=== PATIENT | male | born 1930 | race Caucasian/White ===

== ENCOUNTER 2016-12-28 17:28 | Observation (INO) | payer MEDICARE ==
[~2016-12-28] VITALS: Ht 175.3 cm; Wt 77.0 kg
[2016-12-28 17:32] VITALS: BP 135/87; PULSE 106; RESP 13; TEMP 99.3; O2SAT 95
[2016-12-28] MEDS ORDERED: AMLO5TAB2 PO (18:57)
[2016-12-28] MEDS ORDERED: ATEN25TA PO (18:57)
[2016-12-28] MEDS ORDERED: HYDR25TA5 PO (18:57)
[2016-12-28] MEDS ORDERED: MELO7.5T4 PO (18:57)
[2016-12-28] MEDS ORDERED: SODIUM CHLOR 0.9% 1000 ML INJ 1,000 ML IV SCH (19:37)
[2016-12-28] MEDS ORDERED: ONDANSETRON HCL 4 MG/2 ML VIAL IVP ONE (19:45)
[2016-12-28 19:49] VITALS: BP 154/76; PULSE 83; RESP 17; O2SAT 96
[2016-12-28 20:08] LABS: AUTOMATED NEUTROPHIL # 6.2 TH/MM3 (1.8-7.7); BASOPHIL % 0.3 % (0.0-2.0); EOSINOPHIL % 0.4 % (0.0-4.0); HEMATOCRIT 50.9 % (39.0-51.0); HEMO FLAGS DIFF FINAL; LYMPH % 11.3 % (9.0-44.0); LYMPHOCYTE # 0.9 TH/MM3 (1.0-4.8); MEAN CELL VOLUME 92.6 FL (80.0-100.0); MEAN CORPUSCULAR HEMOGLOBIN 31.2 PG (27.0-34.0); MEAN CORPUSCULAR HGB CONC 33.7 % (32.0-36.0); MONO % 7.1 % (0.0-8.0); NEUT % 80.9 % (16.0-70.0); PLATELET COUNT 126 TH/MM3 (150-450); RED BLOOD COUNT 5.49 MIL/MM3 (4.50-5.90); RED CELL DISTRIBUTION WIDTH 13.6 % (11.6-17.2); WHITE BLOOD COUNT 7.7 TH/MM3 (4.0-11.0)
[2016-12-28 20:20] LABS: INTERNATIONAL NORMALIZED RATIO 1.1 RATIO; PROTHROMBIN TIME - PATIENT 11.7 SEC (9.8-11.6)
--- NOTE | 2016-12-28 20:48 | RADRPT ---
EXAM DATE/TIME: 12/28/2016 20:20 [place] COMPARISON: No previous studies available for comparison. INDICATIONS : Stricture FLUORO TIME: 1.9 minutes IMAGE COUNT: 11 CONTRAST: 1. E-Z HD Barium Sulfate (98% w/w) 2. Liquid E-Z Paque Barium Sulfate (60% w/v, 41% w.w) MEDICAL HISTORY : Esophagial stricture SURGICAL HISTORY : Colostomy. ENCOUNTER: Initial ACUITY: 1 day PAIN SCORE: 0/10 LOCATION: Esophagus FINDINGS: Air-contrast views of the hypopharynx demonstrate a normal mucosal surface without filling defect. R apid sequence images of the hypopharynx and cervical esophagus during the passage of barium demonstra te a normal swallowing function. No evidence of aspiration. Multiphasic examination of the esophagu s demonstrates no esophageal fold thickening, ulceration, or filling defect. The gastroesophageal ju nction is abnormal in configuration with a small sliding-type hiatal hernia with a Schatzki's ring. T he 12.5 mm barium tablet was retained at this level for several minutes. CONCLUSION: Small hiatal hernia with Schatzki's ring at which the barium tablet would not pass for several minute princess Whitley MD on December 28, 2016 at 20:45 Board Certified Radiologist. This report was verified electronically.
[2016-12-28 20:50] LABS: ALT (GPT) 31 U/L (12-78); ANION GAP 8 MEQ/L (5-15); AST (GOT) 34 U/L (15-37); BICARBONATE 27.2 MEQ/L (21.0-32.0); BLOOD UREA NITROGEN 20 MG/DL (7-18); CHLORIDE 105 MEQ/L (98-107); GLOMERULAR FILTRATION RATE 65 ML/MIN (>89); POTASSIUM 4.1 MEQ/L (3.5-5.1); SODIUM (NA) 140 MEQ/L (136-145)
[2016-12-28 20:51] LABS: ALKALINE PHOSPHATASE 84 U/L (45-117); TOTAL BILIRUBIN ADULT 0.8 MG/DL (0.2-1.0)
[2016-12-28] MEDS ORDERED: ONDANSETRON HCL 4 MG/2 ML VIAL IV PUSH PRN (21:15)
--- NOTE | 2016-12-28 21:17 | PD ---
HPI Chief Complaint: Abdominal Pain Time Seen by Provider: 18:52 Travel History International Travel<30 days: No Contact w/Intl Traveler<30days: No Traveled to known affect area: No History of Present Illness HPI 86-year-old male that presents to the ED for evaluation of inability to swallow. Per patient his been ongoing for all day. Per patient she's able to swallow but whenever he swallows a couple minutes later he feels like everything come back up. Per patient he is not minimal treatment swallow his own saliva. Per patient he feels like he just keeps coming back up. He denies able to even swallow solids at all. He is not able to be anything today. He states that he has a history of this similar in the past he was told if he had a hiatal hernia as well has had to have bilateral patient of his esophagus. Per patient is was done years ago at [place] and he no longer follows with the GI doctor at that area. Per patient he actually lives here in [facility]. He has not GI doctor here. Per patient he time he has no pain but whenever he gets the regurgitation episodes he has 3 out of 10 pain. He denies any chest pain. No bowel movement issues. No urinary issues. No recent surgeries to the abdomen. PFSH Past Medical History Diminished Hearing: Yes Hypertension: Yes Past Surgical History Abdominal Surgery: Yes (PERFORATION OF COLON ) Tonsillectomy: Yes Social History Alcohol Use: No Tobacco Use: No Substance Use: No Allergies-Medications (Allergen,Severity, Reaction): Coded Allergies: No Known Allergies (Unverified , 12/28/16) Reported Meds & Prescriptions Reported Meds & Active Scripts Active Reported Hydrochlorothiazide 25 Mg Tab 25 Mg PO DAILY Atenolol 25 Mg Tab 25 Mg PO DAILY Amlodipine (Amlodipine Besylate) 5 Mg Tab 5 Mg PO DAILY Meloxicam 7.5 Mg Tab 7.5 Mg PO DAILY Review of Systems Except as stated in HPI: all other systems reviewed are Neg Physical Exam Narrative GENERAL: SKIN: Warm and dry. HEAD: Atraumatic. Normocephalic. EYES: Pupils equal and round. No scleral icterus. No injection or drainage. ENT: No nasal bleeding or discharge. Mucous membranes pink and moist. Tongue is midline. No uvula deviation. No foreign body or deformity noted to the throat. NECK: Trachea midline. No JVD. CARDIOVASCULAR: Regular rate and rhythm. No murmurs, S3, S4. RESPIRATORY: No accessory muscle use. Clear to auscultation. Breath sounds equal bilaterally. GASTROINTESTINAL: Abdomen soft, non-tender, nondistended. Hepatic and splenic margins not palpable. MUSCULOSKELETAL: Extremities without clubbing, cyanosis, or edema. No obvious deformities. Full range of motion of the upper and lower extremities bilaterally. 2+ pulses bilaterally. NEUROLOGICAL: Awake and alert. No obvious cranial nerve deficits. Motor grossly within normal limits. Five out of 5 muscle strength in the arms and legs. Normal speech. PSYCHIATRIC: Appropriate mood and affect; insight and judgment normal. Data Data Last Documented VS Vital Signs Date Time Temp Pulse Resp B/P (MAP) Pulse Ox O2 Delivery O2 Flow Rate FiO2 12/28/16 19:49 83 17 154/76 (102) 96 Room Air 12/28/16 17:32 99.3 Orders Orders Complete Blood Count With Diff (12/28/16 19:33) Comprehensive Metabolic Panel (12/28/16 19:33) Prothrombin Time / Inr (Pt) (12/28/16 19:33) Act Partial Throm Time (Ptt) (12/28/16 19:33) Lipase (12/28/16 19:33) Barium Swallow (12/28/16 ) Ondansetron Inj (Zofran Inj) (12/28/16 19:45) Sodium Chlor 0.9% 1000 Ml Inj (Ns 1000 M (12/28/16 19:37) Consent (12/28/16 21:10) Diet Npo (12/29/16 Breakfast) ^ Other Nursing Orders (12/28/16 21:11) Pantoprazole Inj (Protonix Inj) (12/28/16 21:15) Ondansetron Inj (Zofran Inj) (12/28/16 21:15) Admit Order (Ed Use Only) (12/28/16 21:57) Consult Gastroenterology (12/28/16 ) Labs Laboratory Tests Test 12/28/16 19:00 White Blood Count 7.7 TH/MM3 Red Blood Count 5.49 MIL/MM3 Hemoglobin 17.1 GM/DL Hematocrit 50.9 % Mean Corpuscular Volume 92.6 FL Mean Corpuscular Hemoglobin 31.2 PG Mean Corpuscular Hemoglobin Concent 33.7 % Red Cell Distribution Width 13.6 % Platelet Count 126 TH/MM3 Mean Platelet Volume 7.6 FL Neutrophils (%) (Auto) 80.9 % Lymphocytes (%) (Auto) 11.3 % Monocytes (%) (Auto) 7.1 % Eosinophils (%) (Auto) 0.4 % Basophils (%) (Auto) 0.3 % Neutrophils # (Auto) 6.2 TH/MM3 Lymphocytes # (Auto) 0.9 TH/MM3 Monocytes # (Auto) 0.5 TH/MM3 Eosinophils # (Auto) 0.0 TH/MM3 Basophils # (Auto) 0.0 TH/MM3 CBC Comment DIFF FINAL Differential Comment Prothrombin Time 11.7 SEC Prothromb Time International Ratio 1.1 RATIO Activated Partial Thromboplast Time 28.0 SEC Blood Urea Nitrogen 20 MG/DL Creatinine 1.08 MG/DL Random Glucose 106 MG/DL Total Protein 7.2 GM/DL Albumin 4.0 GM/DL Calcium Level 9.3 MG/DL Alkaline Phosphatase 84 U/L Aspartate Amino Transf (AST/SGOT) 34 U/L Alanine Aminotransferase (ALT/SGPT) 31 U/L Total Bilirubin 0.8 MG/DL Sodium Level 140 MEQ/L Potassium Level 4.1 MEQ/L Chloride Level 105 MEQ/L Carbon Dioxide Level 27.2 MEQ/L Anion Gap 8 MEQ/L Estimat Glomerular Filtration Rate 65 ML/MIN Lipase 61 U/L MDM Medical Decision Making Medical Screen Exam Complete: Yes Emergency Medical Condition: Yes Medical Record Reviewed: Yes Interpretation(s) CBC & BMP Diagram 12/28/16 19:00 Total Protein 7.2, Albumin 4.0, Calcium Level 9.3, Alkaline Phosphatase 84, Aspartate Amino Transf (AST/SGOT) 34, Alanine Aminotransferase (ALT/SGPT) 31, Total Bilirubin 0.8 Last Impressions Barium Swallow X-Ray 12/28/16 0000 Signed Impressions: Service Date/Time: Wednesday, December 28, 2016 20:20 - CONCLUSION: Small hiatal hernia with Schatzki's ring at which the barium tablet would not pass for several minutes. Jose Roberto Whitley MD Differential Diagnosis Esophageal stricture versus esophagitis versus obstruction versus esophageal spasm versus hiatal hernia Narrative Course 86-year-old male that presents to the ED for evaluation of inability to swallow. Patient was properly examined and was found to have signs and symptoms concerning for esophageal stricture versus spasm. Patient does have a history of having her and has had dilatation in the past. Concern for this again. Recommendation at this time is for barium swallow as well as labs. Patient agrees with this. Labs and imaging did show what appears to be impairment of movement of the barium on the esophageal area around the hiatal hernia. Patient cannot even swallow his own saliva without having it come back up. This was discussed with Dr. Elliott who agrees to consult on the patient and do the EGD tomorrow morning. This was discussed with the patient and family member who agree with plan. Case discussed with Dr. Shah who agrees to admission. Diagnosis Primary Impression: Dysphagia Qualified Codes: R13.10 - Dysphagia, unspecified Additional Impression: Esophageal ring Admitting Information Admitting Physician Requests: Aidan Dhaliwal Dec 28, 2016 21:17
[2016-12-28] MEDS: PANTOPRAZOLE SODIUM 40 MG VIAL IV PUSH SCH (21:56)
[2016-12-28] MEDS ORDERED: MORPHINE SULFATE 4 MG/ML INJ IV PUSH PRN ×2 (22:00)
[2016-12-28] MEDS ORDERED: BISACODYL 10 MG SUPP RECTAL PRN (22:00)
[2016-12-28] MEDS ORDERED: MAGNESIUM HYDROXIDE SUSP 30 ML CUP PO PRN (22:00)
[2016-12-28] MEDS ORDERED: SODIUM CHLORIDE 0.9% FLUSH 10 ML FLUSH IV FLUSH PRN (22:00)
[2016-12-28] MEDS ORDERED: SENNOSIDES 8.6 MG TAB PO PRN (22:00)
[2016-12-28] MEDS ORDERED: ONDANSETRON HCL 4 MG/2 ML VIAL IVP PRN (22:00)
[2016-12-28] MEDS ORDERED: LACTULOSE SYRUP 20 GM/30 ML CUP PO PRN (22:00)
--- NOTE | 2016-12-28 22:01 | HHI.HP ---
HPI Service [facility] Primary Care Physician Isidro Martel MD Admission Diagnosis dysphagia, esophageal stricture, schwalitz ring Diagnoses: (1) Dysphagia Diagnosis: Principal (2) Esophageal stricture Diagnosis: Principal (3) Dehydration Diagnosis: Principal (4) Thrombocytopenia Diagnosis: Principal (5) HTN (hypertension) Diagnosis: Principal Travel History International Travel<30 Days: No Contact w/Intl Traveler <30 Da: No Traveled to Known Affected Are: No History of Present Illness This is an 86-year-old male with PMH of HTN and h/o Esophageal Stricture s/p Dilatation who presented to the ER w/ complaints of dysphagia starting earlier today. States symptoms have been progressive, unable to swallow solids at all, now w/ difficulty swallowing liquids/saliva. Denies chest pain. On arrival, BP 135/87, HR 106, O2 sat 95% on RA, Temp 99.3. CBC unremarkable except for hemoglobin 17.1. Platelets 126. Chemistry unremarkable except for GFR 65. BUN 20. INR 1.1. Barium Swallow a small hiatal hernia and Schatzki's ring at which barium tablet would not pass for several minutes. Dr. Elliott consulted by ER physician, plan is for EGD in am. Review of Systems Except as stated in HPI: all other systems reviewed are Neg ROS: 14 point review of systems otherwise negative. Past Family Social History Past Medical History PMH: HTN and h/o Esophageal Stricture s/p Dilatation Past Surgical History PAST SURGICAL HISTORY: Tonsillectomy, Abdominal Surgery Allergies: Coded Allergies: No Known Allergies (Unverified , 12/28/16) Family History PAST FAMILY HISTORY: Reviewed. No h/o DM or CAD Social History PAST SOCIAL HISTORY: Negative for alcohol, tobacco or drugs. Physical Exam Vital Signs Vital Signs Date Time Temp Pulse Resp B/P (MAP) Pulse Ox O2 Delivery O2 Flow Rate FiO2 12/28/16 19:49 83 17 154/76 (102) 96 Room Air 12/28/16 17:32 99.3 106 13 135/87 (103) 95 Physical Exam PE: GENERAL: Elderly white male in no acute distress. HEENT: PERRLA, EOMI. No scleral icterus or conjunctival pallor. No lid lag or facial droop. CARDIOVASCULAR: Regular rate and rhythm. No obvious murmurs to auscultation. No chest tenderness to palpation. RESPIRATORY: No obvious rhonchi or wheezing. Clear to auscultation. Breath sounds equal bilaterally. GASTROINTESTINAL: Abdomen soft, non-tender, nondistended. BS normal. MUSCULOSKELETAL: Extremities without clubbing, cyanosis, or edema. No obvious deformities. NEUROLOGICAL: Awake, alert and oriented x4. No focal neurologic deficits. Moving both upper and lower extremities spontaneously. Laboratory Laboratory Tests Test 12/28/16 19:00 White Blood Count 7.7 Red Blood Count 5.49 Hemoglobin 17.1 Hematocrit 50.9 Mean Corpuscular Volume 92.6 Mean Corpuscular Hemoglobin 31.2 Mean Corpuscular Hemoglobin Concent 33.7 Red Cell Distribution Width 13.6 Platelet Count 126 Mean Platelet Volume 7.6 Neutrophils (%) (Auto) 80.9 Lymphocytes (%) (Auto) 11.3 Monocytes (%) (Auto) 7.1 Eosinophils (%) (Auto) 0.4 Basophils (%) (Auto) 0.3 Neutrophils # (Auto) 6.2 Lymphocytes # (Auto) 0.9 Monocytes # (Auto) 0.5 Eosinophils # (Auto) 0.0 Basophils # (Auto) 0.0 CBC Comment DIFF FINAL Differential Comment Prothrombin Time 11.7 Prothromb Time International Ratio 1.1 Activated Partial Thromboplast Time 28.0 Blood Urea Nitrogen 20 Creatinine 1.08 Random Glucose 106 Total Protein 7.2 Albumin 4.0 Calcium Level 9.3 Alkaline Phosphatase 84 Aspartate Amino Transf (AST/SGOT) 34 Alanine Aminotransferase (ALT/SGPT) 31 Total Bilirubin 0.8 Sodium Level 140 Potassium Level 4.1 Chloride Level 105 Carbon Dioxide Level 27.2 Anion Gap 8 Estimat Glomerular Filtration Rate 65 Lipase 61 Result Diagram: 12/28/16189912/28/161899 Caprini VTE Risk Assessment Caprini VTE Risk Assessment: No/Low Risk (score <= 1) Caprini Risk Assessment Model Point Value = 1 Point Value = 2 Point Value = 3 Point Value = 5 Age 41-60 Minor surgery BMI > 25 kg/m2 Swollen legs Varicose veins or History of unexplained or recurrent spontaneous Oral contraceptives or hormone replacement Sepsis (< 1 month) Serious lung disease, including pneumonia (< 1 month) Abnormal pulmonary function Acute myocardial infarction Congestive heart failure (< 1 month) History of inflammatory bowel disease Medical patient at bed rest Age 61-74 Arthroscopic surgery Major open surgery (> 45 min) Laparoscopic surgery (> 45 min) Malignancy Confined to bed (> 72 hours) Immobilizing plaster cast Central venous access Age >= 75 History of VTE Family history of VTE Factor V Leiden Prothrombin [id number] Lupus anticoagulant Anticardiolipin antibodies Elevated serum homocysteine Heparin-induced thrombocytopenia Other congenital or acquired thrombophilia Stroke (< 1 month) Elective arthroplasty Hip, pelvis, or leg fracture Acute spinal cord injury (< 1 month) Prophylaxis Regimen Total Risk Factor Score Risk Level Prophylaxis Regimen 0-1 Low Early ambulation 2 Moderate Order ONE of the following: *Sequential Compression Device (SCD) *Heparin 5000 units SQ BID 3-4 Higher Order ONE of the following medications: *Heparin 5000 units SQ TID *Enoxaparin/Lovenox 40 mg SQ daily (WT < 150 kg, CrCl > 30 mL/min) *Enoxaparin/Lovenox 30 mg SQ daily (WT < 150 kg, CrCl > 10-29 mL/min) *Enoxaparin/Lovenox 30 mg SQ BID (WT < 150 kg, CrCl > 30 mL/min) AND/OR *Sequential Compression Device (SCD) 5 or more Highest Order ONE of the following medications: *Heparin 5000 units SQ TID (Preferred with Epidurals) *Enoxaparin/Lovenox 40 mg SQ daily (WT < 150 kg, CrCl > 30 mL/min) *Enoxaparin/Lovenox 30 mg SQ daily (WT < 150 kg, CrCl > 10-29 mL/min) *Enoxaparin/Lovenox 30 mg SQ BID (WT < 150 kg, CrCl > 30 mL/min) AND *Sequential Compression Device (SCD) Assessment and Plan Problem List: (1) Dysphagia ICD Code: R13.10 - Dysphagia, unspecified Status: Acute (2) Esophageal stricture ICD Code: K22.2 - Esophageal obstruction (3) Dehydration ICD Code: E86.0 - Dehydration (4) Thrombocytopenia ICD Code: D69.6 - Thrombocytopenia, unspecified (5) HTN (hypertension) ICD Code: I10 - Essential (primary) hypertension Assessment and Plan A/P: 1. Dysphagia: Progressive. Dysphagia w/ solids, now w/ liquids/saliva. H/o similar symptoms in the past. No c/o chest pain. 2. Esophageal Stricture: h/o Esophageal Dilatation due to stricture. Barium Swallow w/ small hiatal hernia w/ Schatzki's ring, barium tablet would not pass for several minutes, images reviewed by me. Dr. Elliott consulted by ER physician , plan is for EGD in am. NPO, IVF, hold all PO medications at this time. 3. Dehydration: GFR 65, BUN 20. Likely secondary to decreased PO intake from stricture. IVF, repeat labs in am. 4. Thrombocytopenia: Platelets 126, no previous labs for comparison. No active bleeding. Repeat labs in am. 5. HTN: BP 150-160's, hold PO medications at this time in light of esophageal stricture. Monitor BP. IV medications if necessary. 6. DVT Prophylaxis: SCD/Teds. 7. Social work for d/c planning as needed. 8. Case discussed w/ ER physician at length. Problem Qualifiers (1) Dysphagia: Qualified Codes: R13.10 - Dysphagia, unspecified Stephanie Shah MD Dec 28, 2016 22:01
[2016-12-28 23:17] VITALS: BP 163/81; PULSE 81; RESP 18; O2SAT 97
[2016-12-29 00:01] VITALS: BP 166/78; PULSE 63; RESP 19; TEMP 97.8; O2SAT 95
[2016-12-29] MEDS: SODIUM CHLOR 0.9% 1000 ML INJ 1,000 ML IV SCH ×2 (00:29→08:29)
[2016-12-29 03:40] VITALS: BP 133/70; PULSE 65; RESP 18; TEMP 98.4; O2SAT 96
--- NOTE | 2016-12-29 07:25 | PD.CONS ---
HPI History of Present Illness This is a 86 year old male with a long history of solids getting caught intermittently in his esophagus, requiring EGD with dilatations. His last dilatation was about 12-15 years ago. He has continued to have intermittent issues with pills or solids (especially dry solids) becoming lodged, but is usually able to induce vomiting to bring it up. He states that he will then be okay for another 3 months. Yesterday, he took a bite of agarwal for breakfast and it became lodged in his mid esophagus. He was not able to bring this up. He was vomiting clear secretions and having significant discomfort in his esophagus. Eventually, he was able to bring up the agarwal with a large amount of secretions. He occasionally has heartburn, but reports this is very rare. He denies any abdominal pain, weight loss, or GI bleeding. He has occasional constipation, controlled with colace as needed. He is able to swallow his secretions. He came to the ER for further evaluation. Barium Swallow (12/28/16) ----> Small hiatal hernia with Schatzki's ring at which the barium tablet would not pass for several minutes. His last EGD with dilatation was about 12-15 years ago. 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 (Barb Kauffman) [facility] Past Medical History Hypertension Esophageal stricture Hiatal hernia Bowel perforation Peritonitis Diverticulitis Past Surgical History Tonsillectomy EGD dilatation Bowel resection, colostomy with later reversal (bowel perforation secondary to diverticulitis) (Barb Kauffman) Coded Allergies: No Known Allergies (Unverified , 12/28/16) Medications Allergies Coded Allergies Type Severity Reaction Last Updated Verified No Known Allergies 12/28/16 No Active Scripts Medications Dose Route/Sig Max Daily Dose Days Date Category Hydrochlorothiazide 25 Mg Tab 25 Mg PO DAILY 12/28/16 Reported Atenolol 25 Mg Tab 25 Mg PO DAILY 12/28/16 Reported Amlodipine (Amlodipine Besylate) 5 Mg Tab 5 Mg PO DAILY 12/28/16 Reported Meloxicam 7.5 Mg Tab 7.5 Mg PO DAILY 12/28/16 Reported Family History No family hx of esophageal, gastric or colorectal cancer Social History Denies the use of tobacco, etoh, illicit drug use (Barb Kauffman) Review of Systems Constitutional: DENIES: Fatigue, Fever, Chills Respiratory: DENIES: Cough, Shortness of breath Cardiovascular: DENIES: Chest pain Gastrointestinal: COMPLAINS OF: Constipation, Vomiting, Difficulty Swallowing, Odynophagia, Heartburn, DENIES: Abdominal pain, Black stools, Bloody stools, Diarrhea, Nausea, Anorexia, Swelling of Abdomen, Hematemesis Musculoskeletal: COMPLAINS OF: Joint pain Integumentary: DENIES: Abnormal pigmentation, Rash Hematologic/lymphatic: DENIES: Bruising Psychiatric: DENIES: Confusion (Barb Kauffman) GI Exam Vitals I&O Vital Signs Date Time Temp Pulse Resp B/P (MAP) Pulse Ox O2 Delivery O2 Flow Rate FiO2 12/29/16 03:40 98.4 65 18 133/70 (91) 96 12/29/16 00:01 97.8 63 19 166/78 (107) 95 12/28/16 23:18 12/28/16 23:17 81 18 163/81 (108) 97 Room Air 12/28/16 19:49 83 17 154/76 (102) 96 Room Air 12/28/16 17:32 99.3 106 13 135/87 (103) 95 I/O 12/28/16 12/28/16 12/28/16 12/29/16 12/29/16 12/29/16 07:00 15:00 23:00 07:00 15:00 23:00 Intake Total 1000 ml Balance 1000 ml Intake IV Total 1000 ml Imaging Last Impressions Barium Swallow X-Ray 12/28/16 0000 Signed Impressions: Service Date/Time: Wednesday, December 28, 2016 20:20 - CONCLUSION: Small hiatal hernia with Schatzki's ring at which the barium tablet would not pass for several minutes. Jose Roberto Whitley MD Laboratory Test 12/28/16 19:00 White Blood Count 7.7 TH/MM3 Red Blood Count 5.49 MIL/MM3 Hemoglobin 17.1 GM/DL Hematocrit 50.9 % Mean Corpuscular Volume 92.6 FL Mean Corpuscular Hemoglobin 31.2 PG Mean Corpuscular Hemoglobin Concent 33.7 % Red Cell Distribution Width 13.6 % Platelet Count 126 TH/MM3 Mean Platelet Volume 7.6 FL Neutrophils (%) (Auto) 80.9 % Lymphocytes (%) (Auto) 11.3 % Monocytes (%) (Auto) 7.1 % Eosinophils (%) (Auto) 0.4 % Basophils (%) (Auto) 0.3 % Neutrophils # (Auto) 6.2 TH/MM3 Lymphocytes # (Auto) 0.9 TH/MM3 Monocytes # (Auto) 0.5 TH/MM3 Eosinophils # (Auto) 0.0 TH/MM3 Basophils # (Auto) 0.0 TH/MM3 CBC Comment DIFF FINAL Differential Comment Prothrombin Time 11.7 SEC Prothromb Time International Ratio 1.1 RATIO Activated Partial Thromboplast Time 28.0 SEC Blood Urea Nitrogen 20 MG/DL Creatinine 1.08 MG/DL Random Glucose 106 MG/DL Total Protein 7.2 GM/DL Albumin 4.0 GM/DL Calcium Level 9.3 MG/DL Alkaline Phosphatase 84 U/L Aspartate Amino Transf (AST/SGOT) 34 U/L Alanine Aminotransferase (ALT/SGPT) 31 U/L Total Bilirubin 0.8 MG/DL Sodium Level 140 MEQ/L Potassium Level 4.1 MEQ/L Chloride Level 105 MEQ/L Carbon Dioxide Level 27.2 MEQ/L Anion Gap 8 MEQ/L Estimat Glomerular Filtration Rate 65 ML/MIN Lipase 61 U/L Physical Examination HEENT: Normocephalic; atraumatic; no jaundice. CHEST: CTA CARDIAC: RRR ABDOMEN: Soft, nondistended, nontender; no hepatosplenomegaly; bowel sounds are present in all four quadrants. EXTREMITIES: No clubbing, cyanosis, or edema. SKIN: Normal; no rash; no jaundice. AUTOMOTIVE SERVICE PROFESSIONAL: No focal deficits; alert and oriented times three. (Barb Kauffman [facility]) Assessment and Plan Plan ASSESSMENT: - Dysphagia, foreign body in esophagus. Hx of dysphagia requiring dilatations, last 12-15 years ago. He has continued to have issues with dry solids becoming lodged in mid esophagus, but usually can bring it back up on own. Yesterday, a piece of agarwal became lodged and he was unable to bring it back up. Barium Swallow ()----> Small hiatal hernia with Schatzki's ring at which the barium tablet would not pass for several minutes. His last EGD with dilatation was about 12-15 years ago. 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 NPO. Plan for EGD +/- Dilatation, possible food bolus removal. PPI - HTN per attending. PLAN: - Plan for EGD +/- Dilatation, possible food bolus removal - Obtain consents - NPO - Protonix 40mg IV BID - Supportive care - Further recommendations to follow based on results of above - Pt seen and examined by Dr. Keane and myself and this note is written on his behalf (Barb Kauffman) Physician Comments Seen and examined with SUDHA, h/o esophageal stricture with previous madrigal in [facility]. EGD/Dilation planned for today. NPO . Will follow, thank you (Prema Keane MD) Barb Kauffman Dec 29, 2016 07:25 Prema Keane MD Dec 29, 2016 11:10
[2016-12-29 07:32] VITALS: BP 184/86; PULSE 77; RESP 16; TEMP 98; O2SAT 93
[2016-12-29 07:42] LABS: AUTOMATED NEUTROPHIL # 3.5 TH/MM3 (1.8-7.7); BASOPHIL % 0.5 % (0.0-2.0); EOSINOPHIL # 0.2 TH/MM3 (0-0.4); EOSINOPHIL % 3.6 % (0.0-4.0); HEMATOCRIT 46.7 % (39.0-51.0); HEMO FLAGS DIFF FINAL; LYMPH % 27.7 % (9.0-44.0); LYMPHOCYTE # 1.8 TH/MM3 (1.0-4.8); MEAN CELL VOLUME 93.3 FL (80.0-100.0); MEAN CORPUSCULAR HEMOGLOBIN 31.5 PG (27.0-34.0); MEAN CORPUSCULAR HGB CONC 33.7 % (32.0-36.0); MONO % 12.8 % (0.0-8.0); NEUT % 55.4 % (16.0-70.0); PLATELET COUNT 107 TH/MM3 (150-450); RED CELL DISTRIBUTION WIDTH 13.8 % (11.6-17.2); WHITE BLOOD COUNT 6.4 TH/MM3 (4.0-11.0)
[2016-12-29] MEDS ORDERED: ENALAPRILAT 1.25 MG/ML VIAL IV PUSH PRN (07:45)
[2016-12-29 08:25] LABS: ALKALINE PHOSPHATASE 69 U/L (45-117); ALT (GPT) 25 U/L (12-78); ANION GAP 8 MEQ/L (5-15); AST (GOT) 25 U/L (15-37); BICARBONATE 26.3 MEQ/L (21.0-32.0); BLOOD UREA NITROGEN 18 MG/DL (7-18); CHLORIDE 107 MEQ/L (98-107); GLOMERULAR FILTRATION RATE 88 ML/MIN (>89); POTASSIUM 3.5 MEQ/L (3.5-5.1); SODIUM (NA) 141 MEQ/L (136-145); TOTAL BILIRUBIN ADULT 1.1 MG/DL (0.2-1.0)
[2016-12-29] MEDS: PANTOPRAZOLE SODIUM 40 MG VIAL IV PUSH SCH (08:28)
[2016-12-29] MEDS ORDERED: DOCUSATE SODIUM 50 MG/SENNA 8.6 MG TAB PO SCH (09:00)
[2016-12-29] MEDS ORDERED: SODIUM CHLORIDE 0.9% FLUSH 10 ML FLUSH IV FLUSH SCH (09:00)
--- NOTE | 2016-12-29 10:59 | GIPROC ---
[facility] [address] [facility]. [facility], [address] EGD PROCEDURE REPORT EXAM DATE: 12/29/2016 PATIENT NAME: Chance Martinez MR #: [id number] BIRTHDATE: 1930 ATTENDING: Prema Keane MD ORDER #: [id number] RN OR LVN: Malka Denise and Gladis Colon STATUS: inpatient INDICATIONS: The patient is a 86 yr old male here for an EGD due to dysphagia and dyspepsia PROCEDURE PERFORMED: EGD w/ biopsy EGD w/ dilation of esophagus via guidewire MEDICATIONS: None and Per Anesthesia. TOPICAL ANESTHETIC: CONSENT: The patient understands the risks and benefits of the procedure and understands that these risks include, but are not limited to: sedation, allergic reaction, infection, perforation and/or bleeding. Alternative means of evaluation and treatment include, among others: physical exam, x-rays, and/or surgical intervention. The patient elects to proceed with this endoscopic procedure. medical equipment was checked for proper function. Hand hygiene and appropriate measures for infection prevention was taken. After the risks, benefits and alternatives of the procedure were thoroughly explained, Informed consent was verified, confirmed and timeout was successfully executed by the treatment team. The patient was anesthetized with topical anesthesia and the Pentax EG-[id number] endoscope was introduced through the mouth and advanced to the second portion of the duodenum. Retroflexed views revealed a hiatal hernia The gastroscope was then slowly withdrawn and removed. ESOPHAGUS: There was a short peptic stricture in the distal esophagus. The stricture was traversable with resistance. A biopsy was performed using cold forceps. Sample sent for histology. The stricture was dilated using a 17mm (51Fr) savary dilator over guidewire. Following this dilation, there was a small mucosal rent. STOMACH: There was erythematous moderate gastritis in the gastric antrum. A biopsy was performed using cold forceps. Sample sent for histology. DUODENUM: The duodenal mucosa appeared normal. ADVERSE EVENTS: There were no complications. IMPRESSIONS: 1. There was a short stricture in the distal esophagus 2. There was erythematous gastritis in the gastric antrum; biopsy was performed 3. Normal duodenal mucosa 4. Retroflexed views revealed a hiatal hernia RECOMMENDATIONS: 1. Await biopsy results. Biopsy results will not be ready for 7-10 days. If you don't hear from us in two weeks, call our office for biopsy results. 2. Anti-reflux regimen 3. Continue PPI 4. Avoid NSAIDS 5. Follow-up: GI clinic 2 week(s) PATIENT CONDITION: stable DISPOSITION: Inpatient REPEAT EXAM: Return 1 year EGD pending biopsy results Prema Keane MD eSigned: Prema Keane MD 12/29/2016 10:59 AM cc: Isidro walsh M.D. PATIENT NAME: Chance Martinez MR#: [id number]
[2016-12-29] MEDS ORDERED: DO NOT ADM ANY ANTICOAGULANT DRUGS PRN (11:06)
[2016-12-29] MEDS ORDERED: LIDOCAINE HCL 1% PF 5 ML AMPULE OTHER ONE (12:00)
[2016-12-29] MEDS ORDERED: PROPOFOL 200 MG/20 ML AMP IV ONE (12:00)
[2016-12-29 12:16] VITALS: BP 153/71; PULSE 60; RESP 22; TEMP 98.3; O2SAT 95
[2016-12-29] MEDS ORDERED: ATENOLOL 25 MG TAB PO SCH (12:30)
[2016-12-29] MEDS ORDERED: amLODIPine BESYLATE 5 MG TAB PO SCH (12:30)
--- NOTE | 2016-12-29 12:30 | EKG ---
Date Performed: 12/29/2016 Time Performed: 10:06:33 PTAGE: 86 years EKG: Sinus rhythm WITH FIRST DEGREE AV BLOCK POSSIBLE LEFT ATRIAL ENLARGEMENT POSSIBLE LEFT VENTRICULAR HYPERTROPHY AB NORMAL ECG NO PREVIOUS TRACING DOCTOR: Crispin Freeman Interpretating Date/Time 12/29/2016 12:27:35
[2016-12-29] MEDS ORDERED: PANT40TA3 PO (12:31)
--- NOTE | 2016-12-29 12:31 | HHI.PR ---
Subjective Remarks Follow-up for dysphasia. Patient seen with family at bedside. Patient seen after EGD with dilation today. Awaiting lunch, patient wants to eat. He denies any nausea or abdominal pain. He does occasionally take Aleve for pain. Objective Vitals Vital Signs Date Time Temp Pulse Resp B/P (MAP) Pulse Ox O2 Delivery O2 Flow Rate FiO2 12/29/16 12:16 98.3 60 22 153/71 (98) 95 12/29/16 11:30 98.3 75 13 144/74 (97) 98 Room Air 12/29/16 11:15 89 17 157/80 (105) 99 Room Air 12/29/16 11:07 97.9 90 17 142/71 (94) 96 Nasal Cannula 2 12/29/16 07:32 98.0 77 16 184/86 (118) 93 12/29/16 03:40 98.4 65 18 133/70 (91) 96 12/29/16 00:01 97.8 63 19 166/78 (107) 95 12/28/16 23:18 12/28/16 23:17 81 18 163/81 (108) 97 Room Air 12/28/16 19:49 83 17 154/76 (102) 96 Room Air 12/28/16 17:32 99.3 106 13 135/87 (103) 95 I/O 12/28/16 12/28/16 12/28/16 12/29/16 12/29/16 12/29/16 06:59 14:59 22:59 06:59 14:59 22:59 Intake Total 1000 ml 300 ml Balance 1000 ml 300 ml Intake Oral 0 ml IV Total 1000 ml 0 ml Other 300 ml # Voids 0 Result Diagram: 12/29/16 0630 12/29/16 0630 Imaging Last Impressions Barium Swallow X-Ray 12/28/16 0000 Signed Impressions: Service Date/Time: Wednesday, December 28, 2016 20:20 - CONCLUSION: Small hiatal hernia with Schatzki's ring at which the barium tablet would not pass for several minutes. Jose Roberto Whitley MD Objective Remarks GENERAL: Well-developed well-nourished. In no acute distress. SKIN: Warm and dry. No lesions noted. HEENT: Normocephalic. Pupils equal and round. Mucous membranes pink and moist. CARDIOVASCULAR: Regular rate and rhythm. No murmur appreciated. RESPIRATORY: No accessory muscle use. Clear to auscultation. Breath sounds equal bilaterally. GASTROINTESTINAL: Abdomen soft, non-tender, nondistended. Bowel sounds x4. MUSCULOSKELETAL: No obvious deformities. No clubbing or cyanosis. No edema. NEUROLOGICAL: Awake and alert. No focal neurological deficits. Moves upper and lower extremities spontaneously. Normal speech. PSYCHIATRIC: Appropriate mood and affect; insight and judgment normal. A/P Problem List: (1) Dysphagia ICD Code: R13.10 - Dysphagia, unspecified Status: Acute (2) Esophageal stricture ICD Code: K22.2 - Esophageal obstruction Status: Acute (3) Dehydration ICD Code: E86.0 - Dehydration Status: Acute (4) HTN (hypertension) ICD Code: I10 - Essential (primary) hypertension Status: Chronic Assessment and Plan 86-year-old male with PMH of HTN and h/o Esophageal Stricture s/p Dilatation who presented w/ complaints of dysphagia Dysphagia/esophageal stricture: History of esophageal stricture requiring dilation in the past. Barium Swallow performed with hiatal hernia and Schatzki' s ring. GI consulted, performed EGD with dilation, diet advance and recommendation for outpatient follow-up in 2 weeks and avoid NSAIDs. Continue PPI. Patient does admit to NSAID use, counseled against, okay to use Tylenol. ADAT BRODY: Creatinine 1.08, improved to 0.83 with IVF, likely due to dehydration from stricture. Improved. Thrombocytopenia: Platelets 126/107, no previous labs for comparison. No active bleeding. Currently stable. HTN: Wasn't able to swallow BP meds prior to admission and BP is a little bit elevated but reasonably controlled. Resume home BP medications. IV Vasotec as needed. DVT Prophylaxis: SCD/Teds. Discharge Planning Likely discharge after lunch if patient is able to tolerate oral intake Discharge patient to home Condition on discharge: Improved Heart healthy Diet as tolerated Regular activity Rx written: Protonix Follow-up with primary care physician and gastroenterology Problem Qualifiers (1) Dysphagia: Qualified Codes: R13.10 - Dysphagia, unspecified (2) HTN (hypertension): Qualified Codes: I10 - Essential (primary) hypertension Lamonte Everett Dec 29, 2016 12:31
== END 2016-12-29 15:26 | disposition home or self-care (01) ==
LOC: NEPE 17:28 → NEDA 21:58 → NEPHCDU 23:53
PROVIDERS: ADMIT Hospitalist; ATTEND Hospitalist
DX: K22.2 Esophageal obstruction (principal); R13.10 Dysphagia, unspecified; K29.50 Unspecified chronic gastritis without bleeding; K44.9 Diaphragmatic hernia without obstruction or gangrene; E86.0 Dehydration; N17.9 Acute kidney failure, unspecified; D69.6 Thrombocytopenia, unspecified; I10 Essential (primary) hypertension; H91.90 Unspecified hearing loss, unspecified ear; R94.31 Abnormal electrocardiogram [ECG] [EKG]
CPT/HCPCS: 00740; 43239; 43248; 74230; 80053; 83690; 85025; 85610; 85730; 88305; 88312; 93005; 96361; 96374; 96375; 96376; 99285; C1769; C9113; G0378; J2405; J7030

== ENCOUNTER → 2017-06-01 | Day surgery (SDC) | payer MEDICARE ==
[~2017-06-01] VITALS: Ht 176.5 cm; Wt 75.0 kg
[~2017-06-01] MED LIST: AMLO5TAB2 PO; ATEN25TA PO; BACITRACIN TOP OINT 15 GM TUBE ONE; BUPIVACAINE/EPINEPHRINE 0.25% 50 ML VIAL ONE; CHLORHEXIDINE GLUCONATE 2 % 1 PACK (2 CLOTHS) TOPICAL PRN; FAMOTIDINE 20 MG/2 ML VIAL ONE; HYDR25TA5 PO; LIDOCAINE HCL 1% PF 5 ML SYRINGE OTHER ONE; METOPROLOL TARTRATE 25 MG TAB PO PRN; ONDANSETRON HCL 4 MG/2 ML VIAL IV PUSH ONE; PANT40TA3 PO; POVIDONE IODINE 5% (ANTISEPSIS KIT) 4 APPLICATIONS EACH NARE PRN; PROPOFOL 200 MG/20 ML AMP IV ONE; SODIUM CHLORID 0.9% 500 ML IV PRN
[2017-06-01] MEDS: LACTATED RINGER'S 1000 ML IV PRN (10:20)
[2017-06-01 10:33] LABS: HEMATOCRIT 48.5 % (39.0-51.0); HEMOGLOBIN 16.5 GM/DL (13.0-17.0); MEAN CELL VOLUME 90.7 FL (80.0-100.0); MEAN CORPUSCULAR HEMOGLOBIN 30.8 PG (27.0-34.0); MEAN CORPUSCULAR HGB CONC 33.9 % (32.0-36.0); MEAN PLATELET VOLUME 7.9 FL (7.0-11.0); PLATELET COUNT 132 TH/MM3 (150-450); RED BLOOD COUNT 5.34 MIL/MM3 (4.50-5.90); WHITE BLOOD COUNT 7.7 TH/MM3 (4.0-11.0)
[2017-06-01] MEDS: ceFAZolin 1,000 MG/NS 100 ML IV SCH ×2 (11:15)
[2017-06-01 14:10] VITALS: BP 134/70; PULSE 49; RESP 16; TEMP 98.1; O2SAT 95
--- NOTE | 2017-06-02 16:58 | PD.OP ---
Operative Report Date of Surgery: Jun 01, 2017 Preoperative Diagnosis: (1) Carpal tunnel syndrome of right wrist Postoperative Diagnosis: (1) Carpal tunnel syndrome of right wrist Procedure: Right open carpal tunnel release (31854) Anesthesia: General Surgeon: Damian Hickman Medication Aide(s): . Operation and Findings: This is an 86-year-old male who presented with signs and symptoms as well as NCS /EMG findings consistent with right carpal tunnel syndrome. Risks benefits and alternative treatments were discussed. All questions were answered. Patient expressed understanding. Patient elected to assume the risks of right open carpal tunnel release. Informed consent was obtained. Surgical site was marked in the preoperative holding bay. Antibiotics were given on-call to the operating room. The patient was taken to the operating room. A surgical timeout was performed. All pressure points were padded. After the smooth induction of general anesthesia, the surgical site was instilled with quarter percent Marcaine with epinephrine. An appropriately padded upper extremity tourniquet was placed. The surgical site was prepped and draped in the usual sterile fashion. After exsanguination using an Esmarch, the tourniquet was inflated to 250 mmHg. A volar palmar incision was made over the radial aspect of the hyperthenar eminence. Blunt and sharp dissection were carried down to the superficial palmar fascia which was incised. Blunt dissection was used to dissect down to the transverse carpal ligament. Under direct visualization this was meticulously and completely incised using a freer as a backstop. Digital palpation was used to ensure complete lysis of the transverse carpal ligament distally. The superficial palmar arch was visualized and kept free from injury. The median nerve was visualized and kept free from injury. Proximally the antebrachial fascia was incised under direct visualization using tenotomy scissors. Again digital palpation ensured complete release of the carpal tunnel. Hemostasis was ensured. The skin was closed with interrupted 4- 0 nylon in a horizontal mattress fashion. The surgical site was cleaned. The incision was dressed with bacitracin Xeroform gauze dry gauze and fluffs. And appropriately padded volar splint was fashioned. The tourniquet was released at 22 minutes. All digits pinked up nicely. The patient was awoken from anesthesia and arrived stable and doing well to the PACU. All needle sponge and instrument counts were correct 2. Damian Hickman MD Jun 02, 2017 16:58
== END | disposition home or self-care (01) ==
LOC: PHSDC 09:17
PROVIDERS: ATTEND Student in an Organized Health Care Education/Training Program
DX: G56.01 Carpal tunnel syndrome, right upper limb (principal)
CPT/HCPCS: 01810; 36415; 64721; 85027; J0690; J2405; J3010; J7120

== ENCOUNTER 2017-08-31 10:27 | Emergency (ER) | payer MEDICARE ==
[~2017-08-31] VITALS: Ht 175.3 cm; Wt 72.5 kg
[~2017-08-31 10:27] MED LIST changes: -BACITRACIN TOP OINT 15 GM TUBE ONE; -BUPIVACAINE/EPINEPHRINE 0.25% 50 ML VIAL ONE; -CHLORHEXIDINE GLUCONATE 2 % 1 PACK (2 CLOTHS) TOPICAL PRN; -FAMOTIDINE 20 MG/2 ML VIAL ONE; -LIDOCAINE HCL 1% PF 5 ML SYRINGE OTHER ONE; -METOPROLOL TARTRATE 25 MG TAB PO PRN; -ONDANSETRON HCL 4 MG/2 ML VIAL IV PUSH ONE; -POVIDONE IODINE 5% (ANTISEPSIS KIT) 4 APPLICATIONS EACH NARE PRN; -PROPOFOL 200 MG/20 ML AMP IV ONE; -SODIUM CHLORID 0.9% 500 ML IV PRN
[2017-08-31 10:31] VITALS: BP 142/66; PULSE 89; RESP 16; TEMP 101.2; O2SAT 96
[2017-08-31] MEDS ORDERED: SODIUM CHLORIDE 0.9% FLUSH 10 ML FLUSH IVF PRN (10:45)
[2017-08-31] MEDS ORDERED: SODIUM CHLOR 0.9% 1000 ML INJ 1,000 ML IV ONE (10:45)
[2017-08-31 10:51] VITALS: RESP 16; O2SAT 96
[2017-08-31 11:49] LABS: AUTOMATED NEUTROPHIL # 8.4 TH/MM3 (1.8-7.7); BASOPHIL % 0.3 % (0.0-2.0); EOSINOPHIL % 0.3 % (0.0-4.0); HEMATOCRIT 46.2 % (39.0-51.0); HEMOGLOBIN 15.7 GM/DL (13.0-17.0); LYMPH % 5.1 % (9.0-44.0); LYMPHOCYTE # 0.5 TH/MM3 (1.0-4.8); MEAN CELL VOLUME 91.8 FL (80.0-100.0); MEAN CORPUSCULAR HEMOGLOBIN 31.1 PG (27.0-34.0); MEAN CORPUSCULAR HGB CONC 33.9 % (32.0-36.0); MEAN PLATELET VOLUME 7.9 FL (7.0-11.0); MONO % 4.8 % (0.0-8.0); MONOCYTE # 0.5 TH/MM3 (0-0.9); NEUT % 89.5 % (16.0-70.0); PLATELET COUNT 110 TH/MM3 (150-450); RED BLOOD COUNT 5.03 MIL/MM3 (4.50-5.90); RED CELL DISTRIBUTION WIDTH 14.2 % (11.6-17.2); WHITE BLOOD COUNT 9.4 TH/MM3 (4.0-11.0)
[2017-08-31] MEDS ORDERED: CLINDAMYCIN 900 MG/NS PREMIX 50 ML IV ONE (12:00)
[2017-08-31 12:14] LABS: BICARBONATE 27.1 MEQ/L (21.0-32.0); CALCIUM 8.4 MG/DL (8.5-10.1); CREATININE 0.99 MG/DL (0.60-1.30)
[2017-08-31 12:24] VITALS: BP 119/57; PULSE 87; RESP 17; TEMP 97.7; O2SAT 95
--- NOTE | 2017-08-31 12:24 | PD ---
HPI Chief Complaint: Syncope/Near-Syncope Time Seen by Provider: 10:45 Travel History International Travel<30 days: No Contact w/Intl Traveler<30days: No Traveled to known affect area: No History of Present Illness HPI This is an 86-year-old male who presents via EMS after he had a syncopal episode while at the dentist office. Patient states he has a plate that he been on some hard food. He states that he developed an infection from the plate. He states that he was at the dentist office today when they were taking x-rays. He states becoming lightheaded and passed out. He has had a low-grade temperature here. There was nausea vomiting. No diarrhea. He did not get the procedure done. PFSH Past Medical History Cancer: Yes (SKIN) Cardiovascular Problems: Yes (HBP) Diabetes: No Diminished Hearing: Yes (HEARING AIDS) Endocrine: No Gastrointestinal Disorders: Yes (COLOSTOMY AND REVERSAL; OCCASIONAL REFLUX) Genitourinary: No Hepatitis: No Hiatal Hernia: No Hypertension: Yes Immune Disorder: No Musculoskeletal: Yes (NECK PAIN) Psychiatric: No Reproductive: No Respiratory: No Thyroid Disease: No Tetanus Vaccination: < 5 Years Influenza Vaccination: No Past Surgical History Abdominal Surgery: Yes (PERFORATION OF COLON;COLOSTOMY AND REVERSAL) AICD: No Eye Surgery: Yes (BILAT. CATARACT SURGERY) Genitourinary Surgery: No Gynecologic Surgery: No Joint Replacement: No Oral Surgery: Yes (TONSILLECTOMY) Pacemaker: No Tonsillectomy: Yes Other Surgery: Yes (colostomy) Social History Alcohol Use: No Tobacco Use: No Substance Use: No Allergies-Medications (Allergen,Severity, Reaction): Coded Allergies: No Known Allergies (Verified Allergy, Unknown, 08/31/17) Reported Meds & Prescriptions Reported Meds & Active Scripts Active Lorcet (Hydrocodone-Acetaminophen) 5-325 mg Tab 1 Tab PO Q6H PRN 3 Days Clindamycin (Clindamycin HCl) 150 Mg Cap 450 Mg PO Q8HR 7 Days Reported Pantoprazole (Pantoprazole Sodium) 40 Mg Tab 40 Mg PO DAILY Hydrochlorothiazide 25 Mg Tab 25 Mg PO DAILY Atenolol 25 Mg Tab 25 Mg PO DAILY Amlodipine (Amlodipine Besylate) 5 Mg Tab 5 Mg PO DAILY Review of Systems Except as stated in HPI: all other systems reviewed are Neg General / Constitutional: Positive: Fever Eyes: No: Blurred Vision, Photophobia HENT: Positive: Dental Difficulties, No: Headaches, Lightheadedness Cardiovascular: No: Chest Pain or Discomfort, Palpitations Respiratory: No: Cough, Shortness of Breath Gastrointestinal: Positive: Nausea, Vomiting, No: Diarrhea, Abdominal Pain Genitourinary: No: Incontinence Musculoskeletal: No: Weakness, Pain Neurologic: No: Weakness, Dizziness, Headache, Incontinence Physical Exam Narrative GENERAL: Well-developed well-nourished male in no acute respiratory distress. SKIN: Focused skin assessment warm/dry. HEAD: Atraumatic. Normocephalic. EYES: Pupils equal and round. No scleral icterus. No injection or drainage. ENT: The patient has swollen right cheek. Uvula was midline. Bowels were symmetrical. NECK: Trachea midline. Supple. CARDIOVASCULAR: Regular rate and rhythm. No murmur appreciated. RESPIRATORY: No accessory muscle use. Clear to auscultation. Breath sounds equal bilaterally. GASTROINTESTINAL: Abdomen soft, non-tender, nondistended. MUSCULOSKELETAL: No obvious deformities. No clubbing. No cyanosis. No edema. NEUROLOGICAL: Awake and alert. No obvious cranial nerve deficits. Motor grossly within normal limits. Normal speech. Data Data Last Documented VS Vital Signs Date Time Temp Pulse Resp B/P (MAP) Pulse Ox O2 Delivery O2 Flow Rate FiO2 08/31/17 15:40 77 14 135/66 (89) 97 08/31/17 14:00 97.7 Room Air Orders Orders Basic Metabolic Panel (Bmp) (08/31/17 10:45) Complete Blood Count With Diff (08/31/17 10:45) Urinalysis - C+S If Indicated (08/31/17 10:45) Ecg Monitoring (08/31/17 10:45) Iv Access Insert/Monitor (08/31/17 10:45) Oximetry (08/31/17 10:45) Sodium Chloride 0.9% Flush (Ns Flush) (08/31/17 10:45) Sodium Chlor 0.9% 1000 Ml Inj (Ns 1000 M (08/31/17 10:45) Blood Culture (08/31/17 10:45) Lactic Acid Sepsis Protocol (08/31/17 10:45) Electrocardiogram (08/31/17 ) Clindamycin 900 Mg/Ns Premix (Cleocin 90 (08/31/17 12:00) Knee, Complete (4vws) (08/31/17 ) Support Splint (08/31/17 15:01) Labs Laboratory Tests Test 08/31/17 10:55 08/31/17 12:10 White Blood Count 9.4 TH/MM3 Red Blood Count 5.03 MIL/MM3 Hemoglobin 15.7 GM/DL Hematocrit 46.2 % Mean Corpuscular Volume 91.8 FL Mean Corpuscular Hemoglobin 31.1 PG Mean Corpuscular Hemoglobin Concent 33.9 % Red Cell Distribution Width 14.2 % Platelet Count 110 TH/MM3 Mean Platelet Volume 7.9 FL Neutrophils (%) (Auto) 89.5 % Lymphocytes (%) (Auto) 5.1 % Monocytes (%) (Auto) 4.8 % Eosinophils (%) (Auto) 0.3 % Basophils (%) (Auto) 0.3 % Neutrophils # (Auto) 8.4 TH/MM3 Lymphocytes # (Auto) 0.5 TH/MM3 Monocytes # (Auto) 0.5 TH/MM3 Eosinophils # (Auto) 0.0 TH/MM3 Basophils # (Auto) 0.0 TH/MM3 CBC Comment DIFF FINAL Differential Comment Blood Urea Nitrogen 15 MG/DL Creatinine 0.99 MG/DL Random Glucose 103 MG/DL Calcium Level 8.4 MG/DL Sodium Level 143 MEQ/L Potassium Level 4.1 MEQ/L Chloride Level 107 MEQ/L Carbon Dioxide Level 27.1 MEQ/L Anion Gap 9 MEQ/L Estimat Glomerular Filtration Rate 72 ML/MIN Lactic Acid Level 1.5 mmol/L Urine Color YELLOW Urine Turbidity CLEAR Urine pH 5.5 Urine Specific [place] 1.013 Urine Protein NEG mg/dL Urine Glucose (UA) NEG mg/dL Urine Ketones NEG mg/dL Urine Occult Blood NEG Urine Nitrite NEG Urine Bilirubin NEG Urine Urobilinogen LESS THAN 2.0 MG/DL Urine Leukocyte Esterase NEG Urine RBC LESS THAN 1 /hpf Urine WBC LESS THAN 1 /hpf Urine Mucus FEW /lpf Microscopic Urinalysis Comment CULT NOT INDICATED MDM Medical Decision Making Medical Screen Exam Complete: Yes Emergency Medical Condition: Yes Differential Diagnosis Vasovagal syncope versus sepsis versus metabolic derangement. Narrative Course 86-year-old male who had a syncopal episode at the dentist office while getting oral x-rays. Patient had low-grade temperature here. White blood cell count was normal however he did have predominantly segs. Patient's been given 900 mg of IV clindamycin. He will be discharged with 450 clindamycin 3 times a day for 7 days. He will is also been given a prescription for Lorcet. He is instructed return to be DOS any worsening pain, fevers chills, difficulty swallowing or breathing, or any other reason. He will follow-up with a dentist this week as needed. Upon ambulation, the patient was complaining of left knee pain. He states he did twist it when he slid down the wall when he passed out. He has no ligamentous instability. He will be placed in a knee immobilizer for comfort. He is instructed to ice 3-4 times daily for the next 2 days. Diagnosis Primary Impression: Odontalgia with abscess Additional Impression: Left knee strain/sprain Additional Instructions: Ice to left knee 3-4 times daily for 1-2 days. Follow-up with the dentist, call tomorrow for an appointment. Return if difficulty swallowing or breathing. Do not drive vehicle or drink alcohol while taking pain medication. You can add Motrin 600 mg every 6-8 hours in addition to the other pain medications. Med/Other Pt SpecificInfo: Prescription(s) given Scripts Hydrocodone-Acetaminophen (Lorcet) 5-325 mg Tab 1 TAB PO Q6H Y for PAIN for 3 Days, #12 TAB 0 Refills Prov: Bruce Barbosa MD 08/31/17 Clindamycin (Clindamycin) 150 Mg Cap 450 MG PO Q8HR for Infection for 7 Days, #63 CAP 0 Refills Prov: Bruce Barbosa MD 08/31/17 Disposition: 01 DISCHARGE HOME Condition: Stable Bruce Barbosa MD Aug 31, 2017 12:24
[2017-08-31 12:52] LABS: BILIRUBIN, URINE NEG (NEG); BLOOD, URINE NEG (NEG); GLUCOSE,URINE NEG (NEG); KETONE, URINE NEG (NEG); MUCUS URINE FEW /lpf (OCC); NITRITE,URINE NEG (NEG); PH, URINE 5.5 (5.0-8.5); URINE COLOR YELLOW (YELLW/STRAW); URINE LEUKOCYTE ESTERASE NEG (NEG)
[2017-08-31 14:00] VITALS: BP 122/78; PULSE 84; RESP 16; TEMP 97.7; O2SAT 98
[2017-08-31] MEDS ORDERED: CLIN150C14 PO (14:42)
--- NOTE | 2017-08-31 14:55 | EKG ---
Date Performed: 08/31/2017 Time Performed: 10:40:32 PTAGE: 86 years EKG: Sinus rhythm WITH FIRST DEGREE AV BLOCK POSSIBLE LEFT ATRIAL ENLARGEMENT LEFT VENTRICULAR HYPERTROPHY AND ST-T CH JOSUÉ ABNORMAL ECG PREVIOUS TRACING 12/29/16 Consider anterolateral ischemia DOCTOR: Chucho Wilson Interpretating Date/Time 08/31/2017 14:51:52
--- NOTE | 2017-08-31 15:12 | RADRPT ---
EXAM DATE: 08/31/2017 3:08 PM EDT AGE/SEX: 86 years / Male INDICATIONS: Syncope at the dentist office. CLINICAL DATA: This is the patient's initial encounter. Patient reports that signs and symptoms have been present for 1 day and indicates a pain score of 0/10. MEDICAL/SURGICAL HISTORY: . currently has a tooth infection. None. COMPARISON: No prior exams available for comparison. FINDINGS: Degenerative changes are evident with articular cartilage calcification. Meniscal calcification are n oted as well. Trace joint effusion is evident. Fracture not appreciated. CONCLUSION: No evidence of recent bony injury., Degenerative changes worse lateral compartment. Electronically signed by: Syd Finch MD 08/31/2017 3:11 PM EDT
[2017-08-31 15:40] VITALS: BP 135/66
[2017-08-31] MEDS ORDERED: HYDR-3576 PO (15:46)
== END 2017-08-31 15:59 | disposition home or self-care (01) ==
LOC: NEPC 10:27
DX: K08.89 Other specified disorders of teeth and supporting structures (principal); K04.7 Periapical abscess without sinus; S86.912A Strain of unspecified muscle(s) and tendon(s) at lower leg level, left leg, initial encounter; I10 Essential (primary) hypertension; R11.2 Nausea with vomiting, unspecified; X58.XXXA Exposure to other specified factors, initial encounter
CPT/HCPCS: 73564; 80048; 81001; 83605; 85025; 87040; 87186; 87205; 93005; 96361; 96374; 99285; J7030; L1830

== ENCOUNTER 2017-09-06 08:51 | Emergency (ER) | payer MEDICARE ==
[~2017-09-06] VITALS: Ht 175.3 cm; Wt 72.3 kg
[~2017-09-06 08:51] MED LIST changes: +CLIN150C14 PO; +HYDR-3576 PO
[2017-09-06 08:53] VITALS: BP 179/86; PULSE 71; RESP 18; TEMP 97.9; O2SAT 96
--- NOTE | 2017-09-06 09:29 | PD ---
HPI Chief Complaint: Abnormal Results Time Seen by Provider: 09:06 Travel History International Travel<30 days: No Contact w/Intl Traveler<30days: No Traveled to known affect area: No History of Present Illness HPI This is an 86-year-old male who was notified by the hospital but he had positive blood cultures. He was seen on 08/31/17 after he had a syncopal episode at the dentist office when he was having a dental abscess drained. At that visit he was found to have a normal white blood cell count and reassuring workup. He was discharged home on clindamycin 450 mg 3 times daily for 7 days. He reports compliance with this medication. He reports feeling well. He denies fever, chills. He reports the dental infection has nearly resolved. According to the EMR his blood cultures grew out viridans Streptococcus in both sets of cultures. No sensitivity report. He has no medical complaint today. PFSH Past Medical History Narrative Medical Significant for hypertension Cancer: Yes (SKIN) Cardiovascular Problems: Yes (HTN) Diabetes: No Diminished Hearing: Yes (HEARING AIDS) Endocrine: No Gastrointestinal Disorders: Yes (COLOSTOMY AND REVERSAL; OCCASIONAL REFLUX) Genitourinary: No Hepatitis: No Hiatal Hernia: No Hypertension: Yes Immune Disorder: No Musculoskeletal: Yes (NECK PAIN) Psychiatric: No Reproductive: No Respiratory: No Thyroid Disease: No Past Surgical History Abdominal Surgery: Yes (PERFORATION OF COLON;COLOSTOMY AND REVERSAL) AICD: No Eye Surgery: Yes (BILAT. CATARACT SURGERY) Genitourinary Surgery: No Gynecologic Surgery: No Joint Replacement: No Oral Surgery: Yes (TONSILLECTOMY) Pacemaker: No Tonsillectomy: Yes Other Surgery: Yes (colostomy) Social History Alcohol Use: No Tobacco Use: No Substance Use: No Allergies-Medications (Allergen,Severity, Reaction): Coded Allergies: No Known Allergies (Verified Allergy, Unknown, 09/06/17) Reported Meds & Prescriptions Reported Meds & Active Scripts Active Clindamycin (Clindamycin HCl) 150 Mg Cap 450 Mg PO Q8HR 7 Days Reported Pantoprazole (Pantoprazole Sodium) 40 Mg Tab 40 Mg PO DAILY Hydrochlorothiazide 25 Mg Tab 25 Mg PO DAILY Atenolol 25 Mg Tab 25 Mg PO DAILY Amlodipine (Amlodipine Besylate) 5 Mg Tab 5 Mg PO DAILY Review of Systems Except as stated in HPI: all other systems reviewed are Neg General / Constitutional: No: Fever Eyes: No: Visual changes HENT: No: Headaches Cardiovascular: No: Chest Pain or Discomfort Respiratory: No: Shortness of Breath Gastrointestinal: No: Abdominal Pain Genitourinary: No: Dysuria Musculoskeletal: No: Pain Skin: No Rash Neurologic: No: Weakness Physical Exam Narrative GENERAL: Alert and well-appearing 86-year-old male SKIN: Warm and dry. HEAD: Normocephalic. EYES: No scleral icterus. No injection or drainage. ENT: Resolved dental abscess at the location of tooth #8. No surrounding gum erythema or swelling. NECK: Supple, trachea midline. No JVD or lymphadenopathy. CARDIOVASCULAR: Regular rate and rhythm without murmurs, gallops, or rubs. RESPIRATORY: Breath sounds equal bilaterally. No accessory muscle use. GASTROINTESTINAL: Abdomen soft, non-tender, nondistended. MUSCULOSKELETAL: No cyanosis, or edema. BACK: Nontender without obvious deformity. No CVA tenderness. Data Data Last Documented VS Vital Signs Date Time Temp Pulse Resp B/P (MAP) Pulse Ox O2 Delivery O2 Flow Rate FiO2 09/06/17 08:53 97.9 71 18 179/86 (117) 96 Orders Orders Blood Culture (09/06/17 09:21) MDM Medical Decision Making Medical Screen Exam Complete: Yes Emergency Medical Condition: Yes Interpretation(s) Afebrile. No tachycardia. Differential Diagnosis Bacteremia, dental abscess, other Narrative Course 86-year-old male here for reevaluation after being notified of positive blood cultures from his visit on 08/31/17. According to the EMR blood cultures grew out viridans streptococcus. He is currently on clindamycin 450 milligrams 3 times daily which should be appropriate coverage for this bacteria. He is asymptomatic and reports a dental abscess has resolved. A set of blood cultures was drawn today. His antibiotics will be extended for 3 more days for a full 10 days worth of antibiotic coverage. He is to follow-up with his primary doctor. Return precautions were discussed. Case was discussed with my attending physician Dr. Duque. Diagnosis Primary Impression: Positive blood culture Referrals: Primary Care Physician Additional Instructions: Continue your antibiotics as directed. Follow-up with your primary doctor. Return to emergency department if he develop fever, chills, nausea vomiting, or any new concerning symptom Scripts Clindamycin (Clindamycin) 150 Mg Cap 450 MG PO Q8HR for Infection for 3 Days, CAP 0 Refills Prov: Amira Sauceda 09/06/17 Amira Sauceda Sep 06, 2017 09:29
[2017-09-06] MEDS ORDERED: CLIN150C14 PO (09:33)
== END 2017-09-06 09:40 | disposition home or self-care (01) ==
LOC: PHEFT 08:51
DX: R78.89 Finding of other specified substances, not normally found in blood (principal); I10 Essential (primary) hypertension
CPT/HCPCS: 87040; 99283

== ENCOUNTER 2017-09-15 03:10 | Emergency (ER) | payer MEDICARE ==
[~2017-09-15] VITALS: Ht 175.3 cm; Wt 72.9 kg
[~2017-09-15 03:10] MED LIST changes: -HYDR-3576 PO
[2017-09-15 03:16] VITALS: BP 164/85; PULSE 76; RESP 18; TEMP 98.5; O2SAT 95
[2017-09-15 03:24] VITALS: BP 152/81; PULSE 91; RESP 20; O2SAT 96
[2017-09-15] MEDS ORDERED: PRED50 PO (03:41)
[2017-09-15] MEDS ORDERED: AMOX875T PO (03:41)
--- NOTE | 2017-09-15 03:41 | PD ---
HPI Chief Complaint: GI Complaint Time Seen by Provider: 03:32 Travel History International Travel<30 days: No Contact w/Intl Traveler<30days: No Traveled to known affect area: No History of Present Illness HPI The patient is an 86-year-old male that states he has been spitting up mucus and throat as burning for one hour. He has been on clindamycin for 11 days. He states he has sinus tenderness in the right maxillary sinus. He states he has not been vomiting, instead he has been spitting up mucus. The clindamycin was for a dental infection and he has had the infected tooth removed by an oral surgeon. He has no known allergies. PFSH Past Medical History Cancer: Yes (SKIN) Cardiovascular Problems: Yes (HTN) Diabetes: No Diminished Hearing: Yes (HEARING AIDS) Endocrine: No Gastrointestinal Disorders: Yes (COLOSTOMY AND REVERSAL; OCCASIONAL REFLUX) Genitourinary: No Hepatitis: No Hiatal Hernia: No Hypertension: Yes Immune Disorder: No Musculoskeletal: Yes (NECK PAIN) Psychiatric: No Reproductive: No Respiratory: No Thyroid Disease: No Past Surgical History Abdominal Surgery: Yes (PERFORATION OF COLON;COLOSTOMY AND REVERSAL) AICD: No Eye Surgery: Yes (BILAT. CATARACT SURGERY) Genitourinary Surgery: No Gynecologic Surgery: No Joint Replacement: No Oral Surgery: Yes (TONSILLECTOMY) Pacemaker: No Tonsillectomy: Yes Other Surgery: Yes (colostomy) Social History Alcohol Use: No Tobacco Use: No Substance Use: No Allergies-Medications (Allergen,Severity, Reaction): Coded Allergies: No Known Allergies (Verified Allergy, Unknown, 09/06/17) Reported Meds & Prescriptions Reported Meds & Active Scripts Active Clindamycin (Clindamycin HCl) 150 Mg Cap 450 Mg PO Q8HR 3 Days Reported Pantoprazole (Pantoprazole Sodium) 40 Mg Tab 40 Mg PO DAILY Hydrochlorothiazide 25 Mg Tab 25 Mg PO DAILY Atenolol 25 Mg Tab 25 Mg PO DAILY Amlodipine (Amlodipine Besylate) 5 Mg Tab 5 Mg PO DAILY Review of Systems Except as stated in HPI: all other systems reviewed are Neg Physical Exam Narrative GENERAL: Well-nourished, well-developed patient in moderate apparent distress with a sore throat. His vital signs show blood pressure 164/85 but are otherwise normal. SKIN: Focused skin assessment warm/dry. HEAD: Normocephalic. EYES: No scleral icterus. No injection or drainage. NECK: Supple, trachea midline. No JVD or lymphadenopathy. CARDIOVASCULAR: Regular rate and rhythm without murmurs, gallops, or rubs. RESPIRATORY: Breath sounds equal bilaterally. No accessory muscle use. GASTROINTESTINAL: Abdomen soft, non-tender, nondistended. MUSCULOSKELETAL: No cyanosis, or edema. BACK: Nontender without obvious deformity. No CVA tenderness. ENT: The throat is bright red without exudate or abscess. There is no dental tenderness, he took out the teeth in the upper dentures and there is no dental tenderness there and there is no lower tenderness on the teeth below. No drainable abscess is seen. There is tenderness over the right maxillary sinus however. Data Data Last Documented VS Vital Signs Date Time Temp Pulse Resp B/P (MAP) Pulse Ox O2 Delivery O2 Flow Rate FiO2 09/15/17 03:24 91 20 152/81 (104) 96 09/15/17 03:16 98.5 MDM Medical Decision Making Medical Screen Exam Complete: Yes Emergency Medical Condition: Yes Medical Record Reviewed: Yes Differential Diagnosis Acute sinusitis, dental infection, pharyngitis Narrative Course The patient's throat is red and he appears to have a pharyngitis. This may be viral. We will put him on a amoxicillin 850 twice daily for 10 days for the sinusitis in the right maxillary sinus. He should follow-up with his primary care physician. Diagnosis Primary Impression: Right maxillary sinusitis Additional Impression: Viral pharyngitis Additional Instructions: As we discussed, the prednisone is 1 tablet twice daily for 4 days followed by 1 tablet daily for 4 days. The amoxicillin is 1 tablet twice daily for 10 days. Follow-up with your primary care physician. Med/Other Pt SpecificInfo: Prescription(s) given Scripts Prednisone (Prednisone) 50 Mg Tab 50 MG PO BID for X 4 days than daily X 4 days, #12 TAB 0 Refills Prov: Damian Vicente MD 09/15/17 Amoxicillin (Amoxicillin) 875 Mg Tab 875 MG PO BID for Infection for 10 Days, #20 TAB 0 Refills Prov: Damian Vicente MD 09/15/17 Disposition: 01 DISCHARGE HOME Condition: Stable Damian Vicente MD Sep 15, 2017 03:41
[2017-09-15] MEDS ORDERED: predniSONE 20 MG TAB PO ONE (03:45)
[2017-09-15] MEDS ORDERED: AMOXICILLIN 875 MG TAB PO ONE (03:45)
[2017-09-15 04:25] VITALS: BP 146/71
== END 2017-09-15 04:27 | disposition home or self-care (01) ==
LOC: PHED 03:10
DX: J32.0 Chronic maxillary sinusitis (principal); J02.8 Acute pharyngitis due to other specified organisms; B97.89 Other viral agents as the cause of diseases classified elsewhere; I10 Essential (primary) hypertension
CPT/HCPCS: 99283; J7512

== ENCOUNTER 2017-09-29 09:58 | Observation (INO) ==
[2017-09-29 10:54] LABS: Baso # (Auto) 0.1 th/mm3 (0.0-0.2); Baso % (Auto) 0.6 % (0.0-2.0); Eos # (Auto) 0.1 th/mm3 (0.0-0.4); Eos % (Auto) 0.6 % (0.0-4.0); Hematocrit 46.2 % (39.0-51.0); Lymph # (Auto) 0.7 th/mm3 (1.0-4.8); Lymph % (Auto) 4.1 % (9.0-44.0); Mean Corpuscular HGB Conc 34.7 % (32.0-36.0); Mean Corpuscular Hemoglobin 31.3 pg (27.0-34.0); Mean Corpuscular Volume 90.4 fL (80.0-100.0); Mean Platelet Volume 8.6 fL (7.0-11.0); Mono # (Auto) 0.6 th/mm3 (0.0-0.9); Mono % (Auto) 3.5 % (0.0-8.0); Neut # (Auto) 15.1 th/mm3 (1.8-7.7); Neut % (Auto) 91.2 % (16.0-70.0); Platelet Count 99 th/mm3 (150-450); Red Blood Count 5.11 mil/mm3 (4.50-5.90); Red Cell Distribution Width 13.8 % (11.6-17.2); White Blood Count 16.6 th/mm3 (4.0-11.0)
[2017-09-29 10:58] LABS: Bilirubin,Urine Negative (Negative); Clarity,Urine Clear (Clear); Color,Urine Yellow (Yellw/Straw); Glucose,Urine (UA) Negative (Negative); Leukocyte Esterase,Urine Negative (Negative); Nitrite,Urine Negative (Negative); Specific Gravity,Urine 1.015 (1.002-1.035); Urobilinogen,Urine 0.2 mg/dL (Less than 2)
[2017-09-29 11:06] LABS: Chloride 104 meq/L (98-107); Potassium 3.5 meq/L (3.5-5.1); Sodium 140 meq/L (136-145)
[2017-09-29 11:09] LABS: Calcium 8.3 mg/dL (8.5-10.1)
[2017-09-29 11:10] LABS: Albumin 3.4 g/dL (3.4-5.0); Anion Gap 9 meq/L (5-15); Blood Urea Nitrogen 18 mg/dL (7-18); Carbon Dioxide 26.9 meq/L (21.0-32.0); Glucose,Random 137 mg/dL (74-106)
[2017-09-29] MEDS ORDERED: Acetaminophen 500 MG Tablet PO ONE (11:10)
[2017-09-29 11:11] LABS: RBC,Urine 0-3 /hpf (0-3); Squamous Epithelial Cell,Urine 0-5 /hpf (0-5)
[2017-09-29 11:13] LABS: Alanine Aminotransferase 56 U/L (12-78); Aspartate Aminotransferase 37 U/L (15-37); Glomerular Filtration Rate 74 mL/min (>89)
[2017-09-29] MEDS: Sod Chloride 0.9% Inj 1,000 ML IV.SIG SCH (11:13)
[2017-09-29 11:15] LABS: Total Protein 6.4 g/dL (6.4-8.2)
--- NOTE | 2017-09-29 11:15 | XR ---
EXAM DATE: 09/29/2017 11:02 AM EDT AGE/SEX: 87 years / Male INDICATIONS: Fever today. CLINICAL DATA: This is the patient's initial encounter. Patient reports that signs and symptoms have been present for 1 day and indicates a pain score of 0/10. MEDICAL/SURGICAL HISTORY: Hypertension. None. COMPARISON: [facility], XR CHEST PA AND LAT, 08/15/2016. . FINDINGS: A single AP view of the chest demonstrates right perihilar round airspace disease. Left basilar linea r atelectasis or scarring. No effusions. Heart size is normal. Osseous structures are intact. CONCLUSION: 1. Right perihilar airspace disease. Recommend follow-up after therapy to ensure resolution. 2. Minimal linear atelectasis/scarring above the left hemidiaphragm. Electronically signed by: Hu Thorpe MD 09/29/2017 11:14 AM EDT
[2017-09-29 11:16] LABS: Alkaline Phosphatase 83 U/L (45-117)
[2017-09-29 11:22] LABS: Platelet Morphology Normal (Normal)
[2017-09-29] MEDS ORDERED: Azithromycin Inj 500 MG in Sodium Chlor 0.9% Inj 250 ML IV.SIG ONE (13:00)
[2017-09-29] MEDS ORDERED: Acetaminophen 325 MG Tablet PO PRN (13:41)
[2017-09-29] MEDS ORDERED: Bisacodyl 10 MG Supp RECTAL PRN (13:41)
[2017-09-29] MEDS: Sod Chloride 0.9% Inj 1,000 ML IV.CONT SCH (13:57)
--- NOTE | 2017-09-29 14:06 | P.HP ---
History of Present Illness Primary Care Physician: Isidro Martel History of Present Illness: This is a pleasant 87-year-old male patient with a known medical history of hypertension and GERD who presented to the ED with complaints of fevers, chills , nausea and vomiting. Supposedly patient sustained a dental infection roughly 3 weeks ago and at that time was given clindamycin as well as amoxicillin and prednisone. Patient finished his course of antibiotics and steroids roughly 1 week ago. Since that time his dental infection seems to have improved although patient has been having fevers at home with T-max of 101 as well as chills. Patient supposedly ate breakfast yesterday and shortly after developed nausea and vomiting as well as shakiness and chills. Patient denies any cough or shortness of breath. He denies any recent diarrhea. Upon presentation patient meet sepsis criteria with temperature 103, leukocytosis, and pneumonia. - Diagnosis (1) Pneumonia (2) Hypertension Inpatient Certification: I certify that the inpatient services were ordered in accordance with Medicare regulations governing the order. This includes certification that hospital inpatient services are reasonable and necessary and in the case of services not specified as inpatient-only under 42 CFR 419.22(n), that they are appropriately provided as inpatient services in accordance to with the 2-midnight benchmark under 43 CFR 412.3(e) Review of Systems All other systems reviewed negative except as stated in HPI PMFSH - History History Provided By: Patient, Family Member - Medical History Medical History: Medical History (Last Reviewed 09/29/17 @ 10:13 by Lynne Najera) Cataract Diverticulitis Hypertension - Surgical History Surgical History: Surgical History (Last Updated 09/29/17 @ 14:00 by Josette Merrill) History of colostomy - Tobacco History Second Hand Smoke Exposure: No Tobacco Use In Past 30 Days: No Smoking Status: Never smoker - Alcohol History How Often Do You Have a Drink Containing Alcohol: Never - Travel History Recent Travel in the [place] Within the Last 8 Weeks: No Recent Travel Out of the Country Within the Last 8 Weeks: No - Immunization History Tetanus Immunization: Unsure Hx Influenza Vaccine This Season: No Medications and Allergies Active Medications: Active Medications Acetaminophen (Tylenol) 650 mg PO Q4H PRN PRN Reason: Temp > 100.4 Al Hydroxide/Mg Hydroxide (Milk Of Magnesia Liq) 30 ml PO Q12H PRN PRN Reason: Mild Constipation Bisacodyl (Dulcolax Supp) 10 mg RECTAL DAILY PRN PRN Reason: SEVERE CONSITIPATION Heparin Sodium (Porcine) (Heparin Inj) 5,000 units SQ Q12H WES Sodium Chloride (Ns Inj) 1,000 mls @ 0 mls/hr IV.SIG .Q0M WES Last Infusion: 09/29/17 12:39 Dose: Infused Azithromycin 500 mg/ Sodium (Chloride) 250 mls @ 250 mls/hr IV.SIG ONCE ONE Stop: 09/29/17 13:59 Sodium Chloride (Ns Inj) 1,000 mls @ 100 mls/hr IV.CONT .Q10H WES Ceftriaxone Sodium 1,000 mg/ (Sodium Chloride) 100 mls @ 200 mls/hr IV.SIG Q24H WES Azithromycin 500 mg/ Sodium (Chloride) 250 mls @ 250 mls/hr IV.SIG Q24H WES Lactulose (Lactulose Liq) 30 ml PO DAILY PRN PRN Reason: SEVERE CONSITIPATION Ondansetron HCl (Zofran Odt) 4 mg PO Q6H PRN PRN Reason: NAUSEA OR VOMITING Senna/Docusate Sodium (Julia-Colace) 1 tab PO BID WES Sennosides (Senokot) 17.2 mg PO Q12H PRN PRN Reason: Moderate Constipation Temazepam (Restoril) 15 mg PO HS PRN PRN Reason: INSOMNIA Allergies Allergy/AdvReac Type Severity Reaction Status Date / Time No Known Allergies Allergy Unverified 09/29/17 10:10 Home Medications Medication Instructions Recorded Confirmed Type amlodipine 50 mg PO DAILY 09/29/17 09/29/17 History atenolol 25 mg PO DAILY 09/29/17 09/29/17 History hydrochlorothiazide 25 mg PO DAILY 09/29/17 09/29/17 History Exam Vital signs: Vital Signs 09/29/17 10:05 09/29/17 10:36 09/29/17 10:43 Temperature 103.1 F H Pulse Rate 99 H Respiratory Rate 18 Blood Pressure 144/68 H Pulse Oximetry 97 97 97 09/29/17 10:46 09/29/17 12:01 09/29/17 12:59 Temperature 101.8 F H 100.1 F H Pulse Rate 97 H 76 Respiratory Rate 18 18 Blood Pressure 119/60 114/59 L Pulse Oximetry 98 95 Intake & Output 09/28/17 09/29/17 09/29/17 18:59 06:59 18:59 Intake Total 1000 / 1000 Balance 1000 / 1000 Weight 73 kg Intake: IV 1000 / 1000 NS Inj 1,000 ML @ Wide Open IV. 1000 / 1000 SIG .Q0M WES Rx#:[id number] Narrative: GENERAL: Well-developed, well-nourished patient in NAD. SKIN: Warm and dry. No rash. HEAD: Normocephalic. Atraumatic. EYES: Pupils equal and round. No scleral icterus. No injection or drainage. ENT: No nasal bleeding or discharge. Mucous membranes pink and moist. NECK: Supple. Trachea midline. CARDIOVASCULAR: Regular rate and rhythm. S1, S2 noted. No murmur appreciated. RESPIRATORY: No accessory muscle use. Clear to auscultation. Breath sounds equal bilaterally. GASTROINTESTINAL: Abdomen soft, non-tender, nondistended. Normoactive bowel sounds x4. MUSCULOSKELETAL: No obvious deformities. Extremities without clubbing, cyanosis , or edema. NEUROLOGICAL: Awake and alert. No obvious cranial nerve deficits. Motor grossly within normal limits. 5/5 muscle strength in bilateral upper and lower extremities. Normal speech. PSYCHIATRIC: Appropriate mood and affect; insight and judgment normal. Results - Labs CBC & Chem 7: 09/29/17 10:10 09/29/17 10:10 Labs: Laboratory Results - last 24 hr 09/29/17 09/29/17 09/29/17 10:10 10:10 10:10 CBC w Diff Slide review pending WBC 16.6 H RBC 5.11 Hgb 16.0 Hct 46.2 MCV 90.4 MCH 31.3 MCHC 34.7 RDW 13.8 Plt Count 99 L MPV 8.6 Neut % (Auto) 91.2 H Lymph % (Auto) 4.1 L [place] % (Auto) 3.5 Eos % (Auto) 0.6 Baso % (Auto) 0.6 Neut # (Auto) 15.1 H Lymph # (Auto) 0.7 L [place] # (Auto) 0.6 Eos # (Auto) 0.1 Baso # (Auto) 0.1 WBC Differential . Diff Scan Auto diff confirmed Differential Comment . Platelet Estimate Low L Platelet Morphology Normal Sodium 140 Potassium 3.5 Chloride 104 Carbon Dioxide 26.9 Anion Gap 9 BUN 18 Creatinine 0.96 Estimated GFR 74 L POC Glucose Random Glucose 137 H Lactic Acid 2.7 H Calcium 8.3 L Total Bilirubin 0.7 AST 37 ALT 56 Alkaline Phosphatase 83 Total Protein 6.4 Albumin 3.4 Ur Collection Type Urine Color Urine Clarity Urine pH Ur Specific [place] Urine Protein Urine Glucose (UA) Urine Ketones Urine Occult Blood Urine Nitrate Urine Bilirubin Urine Urobilinogen Ur Leukocyte Esterase Urine RBC Ur Squamous Epith Cells Micro UA Comment Urine Culture Comments 09/29/17 09/29/17 09/29/17 10:10 10:49 13:25 CBC w Diff WBC RBC Hgb Hct MCV MCH MCHC RDW Plt Count MPV Neut % (Auto) Lymph % (Auto) [place] % (Auto) Eos % (Auto) Baso % (Auto) Neut # (Auto) Lymph # (Auto) [place] # (Auto) Eos # (Auto) Baso # (Auto) WBC Differential Diff Scan Differential Comment Platelet Estimate Platelet Morphology Sodium Potassium Chloride Carbon Dioxide Anion Gap BUN Creatinine Estimated GFR POC Glucose 153 H Random Glucose Lactic Acid 2.2 H Calcium Total Bilirubin AST ALT Alkaline Phosphatase Total Protein Albumin Ur Collection Type Clean catch Urine Color Yellow Urine Clarity Clear Urine pH 6.0 Ur Specific [place] 1.015 Urine Protein Negative Urine Glucose (UA) Negative Urine Ketones Negative Urine Occult Blood Negative Urine Nitrate Negative Urine Bilirubin Negative Urine Urobilinogen 0.2 Ur Leukocyte Esterase Negative Urine RBC 0-3 Ur Squamous Epith Cells 0-5 Micro UA Comment Culture not ind Urine Culture Comments Culture not ind - Imaging Impressions Chest X-Ray 09/29/17 10:36 CONCLUSION: 1. Right perihilar airspace disease. Recommend follow-up after therapy to ensure resolution. 2. Minimal linear atelectasis/scarring above the left hemidiaphragm. Caprini VTE Risk Assessment Caprini VTE Risk Assessment: Moderate/High Risk (score >= 2) Caprini Risk Assessment Model: Point Value = 1 Point Value = 2 Point Value = 3 Point Value = 5 Age 41-60 Minor surgery BMI > 25 kg/m2 Swollen legs Varicose veins or History of unexplained or recurrent spontaneous Oral contraceptives or hormone replacement Sepsis (< 1 month) Serious lung disease, including pneumonia (< 1 month) Abnormal pulmonary function Acute myocardial infarction Congestive heart failure (< 1 month) History of inflammatory bowel disease Medical patient at bed rest Age 61-74 Arthroscopic surgery Major open surgery (> 45 min) Laparoscopic surgery (> 45 min) Malignancy Confined to bed (> 72 hours) Immobilizing plaster cast Central venous access Age >= 75 History of VTE Family history of VTE Factor V Leiden Prothrombin [id number] Lupus anticoagulant Anticardiolipin antibodies Elevated serum homocysteine Heparin-induced thrombocytopenia Other congenital or acquired thrombophilia Stroke (< 1 month) Elective arthroplasty Hip, pelvis, or leg fracture Acute spinal cord injury (< 1 month) Prophylaxis Regimen: Total Risk Factor Score Risk Level Prophylaxis Regimen 0-1 Low Early ambulation 2 Moderate Order ONE of the following: *Sequential Compression Device (SCD) *Heparin 5000 units SQ BID 3-4 Higher Order ONE of the following medications: *Heparin 5000 units SQ TID *Enoxaparin/Lovenox 40 mg SQ daily (WT < 150 kg, CrCl > 30 mL/min) *Enoxaparin/Lovenox 30 mg SQ daily (WT < 150 kg, CrCl > 10-29 mL/min) *Enoxaparin/Lovenox 30 mg SQ BID (WT < 150 kg, CrCl > 30 mL/min) AND/OR *Sequential Compression Device (SCD) 5 or more Highest Order ONE of the following medications: *Heparin 5000 units SQ TID (Preferred with Epidurals) *Enoxaparin/Lovenox 40 mg SQ daily (WT < 150 kg, CrCl > 30 mL/min) *Enoxaparin/Lovenox 30 mg SQ daily (WT < 150 kg, CrCl > 10-29 mL/min) *Enoxaparin/Lovenox 30 mg SQ BID (WT < 150 kg, CrCl > 30 mL/min) AND *Sequential Compression Device (SCD) Assessment and Plan - Assessment (1) Pneumonia Code(s): J18.9 - Pneumonia, unspecified organism Status: Acute (2) Hypertension Code(s): I10 - Essential (primary) hypertension Status: Acute - Plan This is an 87-year-old male with: Sepsis Community acquired pneumonia with hypoxia and need for supplemental O2 Recent antibiotic use, Clindamycin and Amoxicillin for dental abscess. - Meets sepsis criteria with leukocytosis 16 with bandemia, fever 103, tachycardia, lactic acid 2.7, source pneumonia. - CXR reviewed showing right perihilar infiltrates. UA negative. - Given Azithromycin and Ceftriaxone in ED. Will continue. - Blood cultures pending. Follow. UA negative. - Supplemental O2 as needed, to keep sats >92%. On 2LNC. Wean as tolerated. - Supportive care. Hypertension, chronic: Continue home BP medications. Monitor BP trends. DVT Prophylaxis: SCDs. Heparin.
--- NOTE | 2017-09-29 14:07 | ED ---
HPI General Chief complaint: Fever Stated complaint: FEVER/VOMITIN/KIDNEY PAIN Time Seen by Provider: 09/29/17 10:17 History of Present Illness HPI narrative: 87-year-old male with a history of hypertension, who presents here today with complaints of fever and chills. Patient denies any upper respiratory symptoms. Patient denies any dysuria. He does report that he is having more difficulty urinating than normal. He reports body aches including bilateral flank pain. There is associated nausea and vomiting. There is no diarrhea. There are no ill contacts. Related Data Home Medications Medication Instructions Recorded Confirmed amlodipine 50 mg PO DAILY 09/29/17 09/29/17 atenolol 25 mg PO DAILY 09/29/17 09/29/17 hydrochlorothiazide 25 mg PO DAILY 09/29/17 09/29/17 Allergies Allergy/AdvReac Type Severity Reaction Status Date / Time No Known Allergies Allergy Unverified 09/29/17 10:10 Review of Systems Except as stated in HPI: all other systems reviewed are negative Constitutional Reports chills and Reports fever(s) Eyes Reports system reviewed and no additional complaints, except as [facility] ENT Reports otalgia (Recent dental infection) and Denies headache(s) Cardiovascular Denies chest pain and Denies diaphoresis Respiratory Denies chest congestion, Denies cough and Denies wheezing Gastrointestinal Denies abdominal pain and Denies diarrhea Genitourinary Reports difficulty urinating and Denies dysuria Musculoskeletal Reports myalgias and Reports other Integumentary/Breasts Denies new lesions and Denies rash Neurologic Denies dizziness, Denies headache(s) and Reports weakness (Generalized) Psychiatric Reports system reviewed and no additional complaints, except as [facility] Endocrine Reports system reviewed and no additional complaints, except as [facility] Hematologic/Lymphatic Denies lymphadenopathy Allergic/Immunologic Reports system reviewed and no additional complaints, except as [facility] Medical History Medical History Cataract (Acute) Diverticulitis (Acute) Hypertension (Acute) Surgical History Surgical History History of colostomy (Acute) Social History Social History Substance History: No History of Abuse Second Hand Smoke Exposure: No Smoking Status: Never smoker How Often Do You Have a Drink Containing Alcohol: Never Recent Travel in [facility] within the Last 8 Weeks: No Recent Out of Country Travel within the Last 8 Weeks: No Immunization History Tetanus Immunization: Unsure Hx Influenza Vaccine This Season: No Exam Narrative Exam Narrative: GENERAL: Well-developed weak appearing male in no acute respiratory distress. SKIN: Focused skin assessment warm/dry. HEAD: Atraumatic. Normocephalic. EYES: No scleral icterus. No injection or drainage. ENT: No nasal bleeding or discharge. Mucous membranes pink and dry. NECK: Trachea midline. Supple. CARDIOVASCULAR: Regular rate and rhythm. No murmur appreciated. RESPIRATORY: No accessory muscle use. Fine rales appreciated in the right base. Left lung appear clear. GASTROINTESTINAL: Abdomen soft, non-tender, nondistended. Hepatic and splenic margins not palpable. MUSCULOSKELETAL: No obvious deformities. NEUROLOGICAL: Awake and alert. No obvious cranial nerve deficits. Motor grossly within normal limits. Normal speech. PSYCHIATRIC: Appropriate mood and affect; insight and judgment normal. Course Initial Documented Vital Signs Temperature 103.1 F H 09/29/17 10:05 Pulse Rate 99 H 09/29/17 10:05 Respiratory Rate 18 09/29/17 10:05 Blood Pressure 144/68 H 09/29/17 10:05 Pulse Oximetry 97 09/29/17 10:05 Last Documented Vital Signs Temperature 97.5 F L 10/01/17 10:19 Pulse Rate 64 10/01/17 10:19 Respiratory Rate 20 10/01/17 00:00 Blood Pressure 142/74 H 10/01/17 10:19 Pulse Oximetry 96 10/01/17 10:19 Medical Decision Making [facility] Narrative Medical decision making narrative: This is a 87-year-old male with history of hypertension, who presents today with complaints of fever and chills. Patient has no pulmonary symptoms are dysuria. He does have difficulty urinating. He has had enlarged prostate in the past. The patient's urinalysis shows no evidence of infection. Patient does have leukocytosis with a left shift. Chest x-ray shows questionable infiltrate in the right lung. Patient's been started on Rocephin and Zithromax. He has been given 1 L of IV hydration. He will be admitted to the hospital for sepsis. He does meet sepsis criteria by temperature, white blood cell count and source. Case was discussed with the [facility] hospitalist rent control office manager. He will be a full admission. Differential Diagnosis Differential Diagnosis: Sepsis versus pneumonia versus pyelonephritis versus metabolic derangement Lab Data Result diagrams: 10/01/17 04:49 10/01/17 04:49 Lab Results 09/29/17 09/29/17 09/29/17 Range/Units 10:10 10:10 10:10 CBC w Diff Slide review pending WBC 16.6 H (4.0-11.0) th/mm3 RBC 5.11 (4.50-5.90) mil/mm3 Hgb 16.0 (13.0-17.0) gm/dL Hct 46.2 (39.0-51.0) % MCV 90.4 (80.0-100.0) fL MCH 31.3 (27.0-34.0) pg MCHC 34.7 (32.0-36.0) % RDW 13.8 (11.6-17.2) % Plt Count 99 L (150-450) th/mm3 MPV 8.6 (7.0-11.0) fL Neut % (Auto) 91.2 H (16.0-70.0) % Lymph % (Auto) 4.1 L (9.0-44.0) % [place] % (Auto) 3.5 (0.0-8.0) % Eos % (Auto) 0.6 (0.0-4.0) % Baso % (Auto) 0.6 (0.0-2.0) % Neut # (Auto) 15.1 H (1.8-7.7) th/mm3 Lymph # (Auto) 0.7 L (1.0-4.8) th/mm3 [place] # (Auto) 0.6 (0.0-0.9) th/mm3 Eos # (Auto) 0.1 (0.0-0.4) th/mm3 Baso # (Auto) 0.1 (0.0-0.2) th/mm3 WBC Differential . Diff Scan Auto diff confirmed Differential Comment . Platelet Estimate Low L (Normal) Platelet Morphology Normal (Normal) Sodium 140 (136-145) meq/L Potassium 3.5 (3.5-5.1) meq/L Chloride 104 (98-107) meq/L Carbon Dioxide 26.9 (21.0-32.0) meq/L Anion Gap 9 (5-15) meq/L BUN 18 (7-18) mg/dL Creatinine 0.96 (0.60-1.30) mg/dL Estimated GFR 74 L (>89) mL/min POC Glucose (68-110) mg/dl Random Glucose 137 H (74-106) mg/dL Lactic Acid 2.7 H (0.4-2.0) mmol/L Calcium 8.3 L (8.5-10.1) mg/dL Prot Corrected Calcium (8.5-10.1) mg/dL Total Bilirubin 0.7 (0.2-1.0) mg/dL AST 37 (15-37) U/L ALT 56 (12-78) U/L Alkaline Phosphatase 83 (45-117) U/L Total Protein 6.4 (6.4-8.2) g/dL Albumin 3.4 (3.4-5.0) g/dL Ur Collection Type Urine Color (Yellw/Straw) Urine Clarity (Clear) Urine pH (5.0-8.5) Ur Specific [place] (1.002-1.035) Urine Protein (Neg-Trace) mg/dL Urine Glucose (UA) (Negative) mg/dL Urine Ketones (Negative) mg/dL Urine Occult Blood (Negative) Urine Nitrate (Negative) Urine Bilirubin (Negative) Urine Urobilinogen (Less than 2) mg/dL Ur Leukocyte Esterase (Negative) Urine RBC (0-3) /hpf Ur Squamous Epith Cells (0-5) /hpf Micro UA Comment Urine Culture Comments 09/29/17 09/29/17 09/29/17 Range/Units 10:10 10:49 13:25 CBC w Diff WBC (4.0-11.0) th/mm3 RBC (4.50-5.90) mil/mm3 Hgb (13.0-17.0) gm/dL Hct (39.0-51.0) % MCV (80.0-100.0) fL MCH (27.0-34.0) pg MCHC (32.0-36.0) % RDW (11.6-17.2) % Plt Count (150-450) th/mm3 MPV (7.0-11.0) fL Neut % (Auto) (16.0-70.0) % Lymph % (Auto) (9.0-44.0) % [place] % (Auto) (0.0-8.0) % Eos % (Auto) (0.0-4.0) % Baso % (Auto) (0.0-2.0) % Neut # (Auto) (1.8-7.7) th/mm3 Lymph # (Auto) (1.0-4.8) th/mm3 [place] # (Auto) (0.0-0.9) th/mm3 Eos # (Auto) (0.0-0.4) th/mm3 Baso # (Auto) (0.0-0.2) th/mm3 WBC Differential Diff Scan Differential Comment Platelet Estimate (Normal) Platelet Morphology (Normal) Sodium (136-145) meq/L Potassium (3.5-5.1) meq/L Chloride (98-107) meq/L Carbon Dioxide (21.0-32.0) meq/L Anion Gap (5-15) meq/L BUN (7-18) mg/dL Creatinine (0.60-1.30) mg/dL Estimated GFR (>89) mL/min POC Glucose 153 H (68-110) mg/dl Random Glucose (74-106) mg/dL Lactic Acid 2.2 H (0.4-2.0) mmol/L Calcium (8.5-10.1) mg/dL Prot Corrected Calcium (8.5-10.1) mg/dL Total Bilirubin (0.2-1.0) mg/dL AST (15-37) U/L ALT (12-78) U/L Alkaline Phosphatase (45-117) U/L Total Protein (6.4-8.2) g/dL Albumin (3.4-5.0) g/dL Ur Collection Type Clean catch Urine Color Yellow (Yellw/Straw) Urine Clarity Clear (Clear) Urine pH 6.0 (5.0-8.5) Ur Specific Center 1.015 (1.002-1.035) Urine Protein Negative (Neg-Trace) mg/dL Urine Glucose (UA) Negative (Negative) mg/dL Urine Ketones Negative (Negative) mg/dL Urine Occult Blood Negative (Negative) Urine Nitrate Negative (Negative) Urine Bilirubin Negative (Negative) Urine Urobilinogen 0.2 (Less than 2) mg/dL Ur Leukocyte Esterase Negative (Negative) Urine RBC 0-3 (0-3) /hpf Ur Squamous Epith Cells 0-5 (0-5) /hpf Micro UA Comment Culture not ind Urine Culture Comments Culture not ind 09/30/17 09/30/17 10/01/17 Range/Units 05:25 05:25 04:49 CBC w Diff Slide review pending Slide review pending WBC 16.3 H 10.1 (4.0-11.0) th/mm3 RBC 4.20 L 4.27 L (4.50-5.90) mil/mm3 Hgb 12.9 L D 13.7 (13.0-17.0) gm/dL Hct 39.0 39.1 (39.0-51.0) % MCV 92.8 91.5 (80.0-100.0) fL MCH 30.8 32.1 (27.0-34.0) pg MCHC 33.2 35.1 (32.0-36.0) % RDW 13.6 14.5 (11.6-17.2) % Plt Count 81 L 84 L (150-450) th/mm3 MPV 8.4 8.6 (7.0-11.0) fL Neut % (Auto) 84.3 H 80.5 H (16.0-70.0) % Lymph % (Auto) 11.0 13.3 (9.0-44.0) % [place] % (Auto) 3.8 4.5 (0.0-8.0) % Eos % (Auto) 0.7 1.4 (0.0-4.0) % Baso % (Auto) 0.2 0.3 (0.0-2.0) % Neut # (Auto) 13.8 H 8.2 H (1.8-7.7) th/mm3 Lymph # (Auto) 1.8 1.3 (1.0-4.8) th/mm3 [place] # (Auto) 0.6 0.5 (0.0-0.9) th/mm3 Eos # (Auto) 0.1 0.1 (0.0-0.4) th/mm3 Baso # (Auto) 0.0 0.0 (0.0-0.2) th/mm3 WBC Differential . . Diff Scan Auto diff confirmed Auto diff confirmed Differential Comment . . Platelet Estimate Low L Low L (Normal) Platelet Morphology Normal Normal (Normal) Sodium 143 (136-145) meq/L Potassium 3.2 L (3.5-5.1) meq/L Chloride 109 H (98-107) meq/L Carbon Dioxide 26.1 (21.0-32.0) meq/L Anion Gap 8 (5-15) meq/L BUN 16 (7-18) mg/dL Creatinine 0.77 (0.60-1.30) mg/dL Estimated GFR Greater than 89 (>89) mL/min POC Glucose (68-110) mg/dl Random Glucose 101 (74-106) mg/dL Lactic Acid (0.4-2.0) mmol/L Calcium 7.2 L* D (8.5-10.1) mg/dL Prot Corrected Calcium 8.3 L (8.5-10.1) mg/dL Total Bilirubin (0.2-1.0) mg/dL AST (15-37) U/L ALT (12-78) U/L Alkaline Phosphatase (45-117) U/L Total Protein 5.0 L D (6.4-8.2) g/dL Albumin (3.4-5.0) g/dL Ur Collection Type Urine Color (Yellw/Straw) Urine Clarity (Clear) Urine pH (5.0-8.5) Ur Specific Center (1.002-1.035) Urine Protein (Neg-Trace) mg/dL Urine Glucose (UA) (Negative) mg/dL Urine Ketones (Negative) mg/dL Urine Occult Blood (Negative) Urine Nitrate (Negative) Urine Bilirubin (Negative) Urine Urobilinogen (Less than 2) mg/dL Ur Leukocyte Esterase (Negative) Urine RBC (0-3) /hpf Ur Squamous Epith Cells (0-5) /hpf Micro UA Comment Urine Culture Comments 10/01/17 Range/Units 04:49 CBC w Diff WBC (4.0-11.0) th/mm3 RBC (4.50-5.90) mil/mm3 Hgb (13.0-17.0) gm/dL Hct (39.0-51.0) % MCV (80.0-100.0) fL MCH (27.0-34.0) pg MCHC (32.0-36.0) % RDW (11.6-17.2) % Plt Count (150-450) th/mm3 MPV (7.0-11.0) fL Neut % (Auto) (16.0-70.0) % Lymph % (Auto) (9.0-44.0) % [place] % (Auto) (0.0-8.0) % Eos % (Auto) (0.0-4.0) % Baso % (Auto) (0.0-2.0) % Neut # (Auto) (1.8-7.7) th/mm3 Lymph # (Auto) (1.0-4.8) th/mm3 [place] # (Auto) (0.0-0.9) th/mm3 Eos # (Auto) (0.0-0.4) th/mm3 Baso # (Auto) (0.0-0.2) th/mm3 WBC Differential Diff Scan Differential Comment Platelet Estimate (Normal) Platelet Morphology (Normal) Sodium 144 (136-145) meq/L Potassium 3.7 (3.5-5.1) meq/L Chloride 111 H (98-107) meq/L Carbon Dioxide 24.7 (21.0-32.0) meq/L Anion Gap 8 (5-15) meq/L BUN 13 (7-18) mg/dL Creatinine 0.77 (0.60-1.30) mg/dL Estimated GFR Greater than 89 (>89) mL/min POC Glucose (68-110) mg/dl Random Glucose 96 (74-106) mg/dL Lactic Acid (0.4-2.0) mmol/L Calcium 8.0 L D (8.5-10.1) mg/dL Prot Corrected Calcium (8.5-10.1) mg/dL Total Bilirubin (0.2-1.0) mg/dL AST (15-37) U/L ALT (12-78) U/L Alkaline Phosphatase (45-117) U/L Total Protein (6.4-8.2) g/dL Albumin (3.4-5.0) g/dL Ur Collection Type Urine Color (Yellw/Straw) Urine Clarity (Clear) Urine pH (5.0-8.5) Ur Specific Center (1.002-1.035) Urine Protein (Neg-Trace) mg/dL Urine Glucose (UA) (Negative) mg/dL Urine Ketones (Negative) mg/dL Urine Occult Blood (Negative) Urine Nitrate (Negative) Urine Bilirubin (Negative) Urine Urobilinogen (Less than 2) mg/dL Ur Leukocyte Esterase (Negative) Urine RBC (0-3) /hpf Ur Squamous Epith Cells (0-5) /hpf Micro UA Comment Urine Culture Comments Imaging Data Radiologist's impression: Chest X-Ray 09/29/17 10:36 CONCLUSION: 1. Right perihilar airspace disease. Recommend follow-up after therapy to ensure resolution. 2. Minimal linear atelectasis/scarring above the left hemidiaphragm. Discharge Plan Discharge Disposition Patient Disposition: 30 Still Patient Discharge Condition Condition: Good Discharge Order Discharge Orders: Discharge Order (Routine); Ordered 10/01/17 Ordered By: Josette Merrill Discharge Details Anticipated Discharge Date: 10/01/17 Diagnosis: Sepsis, Community acquired pneumonia Physicians Team ED Provider: Bruce Barbosa Primary Care Provider: Isidro Martel Attending Provider: Dayna Hagen Status ED Status: Left Department Discharge Information Discharge Date/Time: 09/29/17 14:48
[2017-09-29] MEDS: Heparin - SQ 10,000 UNITS/ML Vial SQ SCH (17:07)
--- NOTE | 2017-09-29 17:15 | ECG ---
Date Performed: 09/29/2017 Time Performed: 10:45:12 PTAGE: 87 years EKG: Sinus rhythm MODERATE VOLTAGE CRITERIA FOR LVH, CONSIDER NORMAL VARIANT NONSPECIFIC ST & T-WAVE ABNORMALITY EB SUE ECG PREVIOUS TRACING : 08/31/2017 10.40 Since the previous tracing, no significant change noted DOCTOR: Donavan Resendez Interpretating Date/Time 09/29/2017 17:14:39
[2017-09-29] MEDS ORDERED: Temazepam 15 MG Capsule PO PRN (21:00)
[2017-09-29 21:54] VITALS: RESP 20
[2017-09-29] MEDS: Senna/Docusate Sodium 8.6/50 MG Tablet PO SCH (21:57)
[2017-09-30] MEDS: Heparin - SQ 10,000 UNITS/ML Vial SQ SCH ×2 (02:54→14:31)
[2017-09-30 06:54] LABS: Baso % (Auto) 0.2 % (0.0-2.0); Eos # (Auto) 0.1 th/mm3 (0.0-0.4); Eos % (Auto) 0.7 % (0.0-4.0); Hemoglobin 12.9 gm/dL (13.0-17.0); Lymph # (Auto) 1.8 th/mm3 (1.0-4.8); Mean Corpuscular HGB Conc 33.2 % (32.0-36.0); Mean Corpuscular Hemoglobin 30.8 pg (27.0-34.0); Mean Corpuscular Volume 92.8 fL (80.0-100.0); Mean Platelet Volume 8.4 fL (7.0-11.0); Mono # (Auto) 0.6 th/mm3 (0.0-0.9); Mono % (Auto) 3.8 % (0.0-8.0); Neut # (Auto) 13.8 th/mm3 (1.8-7.7); Neut % (Auto) 84.3 % (16.0-70.0); Platelet Count 81 th/mm3 (150-450); Red Cell Distribution Width 13.6 % (11.6-17.2); White Blood Count 16.3 th/mm3 (4.0-11.0)
[2017-09-30 07:02] LABS: Chloride 109 meq/L (98-107); Potassium 3.2 meq/L (3.5-5.1); Sodium 143 meq/L (136-145)
[2017-09-30 07:21] LABS: Anion Gap 8 meq/L (5-15); Blood Urea Nitrogen 16 mg/dL (7-18); Calcium 7.2 mg/dL (8.5-10.1); Carbon Dioxide 26.1 meq/L (21.0-32.0); Glomerular Filtration Rate Greater Than 89 mL/min (>89); Glucose,Random 101 mg/dL (74-106)
--- NOTE | 2017-09-30 07:35 | P.PNIM ---
Subjective Interval history: Follow up sepsis and pneumonia. Patient seen and examined, lying in bed comfortably no apparent distress. No shortness of breath. Patient has been out of bed ambulating with no shortness of breath with exertion. Eating well with no abdominal pain, nausea or vomiting. Symptoms have improved. Denies any pain overnight. Denies any acute events overnight. Vital signs stable. Afebrile. Awaiting blood cultures today. Physical Exam Vital signs: Vital Signs 09/29/17 10:05 09/29/17 10:36 09/29/17 10:43 Temperature 103.1 F H Pulse Rate 99 H Respiratory Rate 18 Blood Pressure 144/68 H Pulse Oximetry 97 97 97 09/29/17 10:46 09/29/17 12:01 09/29/17 12:59 Temperature 101.8 F H 100.1 F H Pulse Rate 97 H 76 Respiratory Rate 18 18 Blood Pressure 119/60 114/59 L Pulse Oximetry 98 95 09/29/17 14:05 09/29/17 14:16 09/29/17 14:48 Temperature Pulse Rate 92 H Respiratory Rate 18 Blood Pressure 112/64 Pulse Oximetry 97 97 09/29/17 16:00 09/29/17 20:00 09/29/17 20:40 Temperature 98.0 F 97.8 F Pulse Rate 74 65 Respiratory Rate 17 20 Blood Pressure 109/56 L 98/59 L Pulse Oximetry 96 98 96 09/30/17 00:00 09/30/17 04:00 Temperature 97.5 F L 96.2 F L Pulse Rate 69 59 L Respiratory Rate 20 20 Blood Pressure 106/59 L 103/66 Pulse Oximetry 98 99 Intake & Output 09/29/17 09/30/17 09/30/17 18:59 06:59 18:59 Intake Total 1760 / 1760 240 / 240 Balance 1760 / 1760 240 / 240 Weight 73 kg 75.4 kg Intake: IV 1400 / 1400 0 / 0 NS Inj 1,000 ML @ 100 mls/hr IV 50 / 50 0 / 0 .CONT .Q10H [facility] Rx#:[id number] Azithromycin Inj 500 MG In NS 250 / 250 Inj 250 ML @ 250 mls/hr IV.SIG ONCE ONE Rx#:[id number] NS Inj 1,000 ML @ Wide Open IV. 1000 / 1000 SIG .Q0M [facility] Rx#:[id number] Rocephin Inj 1,000 MG In NS Inj 100 / 100 100 ML @ 200 mls/hr IV.SIG ONCE ONE Rx#:[id number] Oral 360 / 360 240 / 240 Other: # Voids 3 2 Date of Last Bowel Movement 09/29/17 09/29/17 # Bowel Movements 0 Narrative: GENERAL: Well-developed, well-nourished patient in NAD. SKIN: Warm and dry. No rash. HEAD: Normocephalic. Atraumatic. EYES: Pupils equal and round. No scleral icterus. No injection or drainage. ENT: No nasal bleeding or discharge. Mucous membranes pink and moist. NECK: Supple. Trachea midline. CARDIOVASCULAR: Regular rate and rhythm. S1, S2 noted. No murmur appreciated. RESPIRATORY: No accessory muscle use. Clear to auscultation. Breath sounds equal bilaterally. GASTROINTESTINAL: Abdomen soft, non-tender, nondistended. Normoactive bowel sounds x4. MUSCULOSKELETAL: No obvious deformities. Extremities without clubbing, cyanosis , or edema. NEUROLOGICAL: Awake and alert. No obvious cranial nerve deficits. Motor grossly within normal limits. 5/5 muscle strength in bilateral upper and lower extremities. Normal speech. PSYCHIATRIC: Appropriate mood and affect; insight and judgment normal. - Constitutional no acute distress Results - Labs CBC & Chem 7: 09/30/17 05:25 09/30/17 05:25 Laboratory Results - last 24 hr 09/29/17 09/29/17 09/29/17 10:10 10:10 10:10 CBC w Diff Slide review pending WBC 16.6 H RBC 5.11 Hgb 16.0 Hct 46.2 MCV 90.4 MCH 31.3 MCHC 34.7 RDW 13.8 Plt Count 99 L MPV 8.6 Neut % (Auto) 91.2 H Lymph % (Auto) 4.1 L [place] % (Auto) 3.5 Eos % (Auto) 0.6 Baso % (Auto) 0.6 Neut # (Auto) 15.1 H Lymph # (Auto) 0.7 L [place] # (Auto) 0.6 Eos # (Auto) 0.1 Baso # (Auto) 0.1 WBC Differential . Diff Scan Auto diff confirmed Differential Comment . Platelet Estimate Low L Platelet Morphology Normal Sodium 140 Potassium 3.5 Chloride 104 Carbon Dioxide 26.9 Anion Gap 9 BUN 18 Creatinine 0.96 Estimated GFR 74 L POC Glucose Random Glucose 137 H Lactic Acid 2.7 H Calcium 8.3 L Total Bilirubin 0.7 AST 37 ALT 56 Alkaline Phosphatase 83 Total Protein 6.4 Albumin 3.4 Ur Collection Type Urine Color Urine Clarity Urine pH Ur Specific [place] Urine Protein Urine Glucose (UA) Urine Ketones Urine Occult Blood Urine Nitrate Urine Bilirubin Urine Urobilinogen Ur Leukocyte Esterase Urine RBC Ur Squamous Epith Cells Micro UA Comment Urine Culture Comments 09/29/17 09/29/17 09/29/17 10:10 10:49 13:25 CBC w Diff WBC RBC Hgb Hct MCV MCH MCHC RDW Plt Count MPV Neut % (Auto) Lymph % (Auto) [place] % (Auto) Eos % (Auto) Baso % (Auto) Neut # (Auto) Lymph # (Auto) [place] # (Auto) Eos # (Auto) Baso # (Auto) WBC Differential Diff Scan Differential Comment Platelet Estimate Platelet Morphology Sodium Potassium Chloride Carbon Dioxide Anion Gap BUN Creatinine Estimated GFR POC Glucose 153 H Random Glucose Lactic Acid 2.2 H Calcium Total Bilirubin AST ALT Alkaline Phosphatase Total Protein Albumin Ur Collection Type Clean catch Urine Color Yellow Urine Clarity Clear Urine pH 6.0 Ur Specific [place] 1.015 Urine Protein Negative Urine Glucose (UA) Negative Urine Ketones Negative Urine Occult Blood Negative Urine Nitrate Negative Urine Bilirubin Negative Urine Urobilinogen 0.2 Ur Leukocyte Esterase Negative Urine RBC 0-3 Ur Squamous Epith Cells 0-5 Micro UA Comment Culture not ind Urine Culture Comments Culture not ind 09/30/17 09/30/17 05:25 05:25 CBC w Diff Slide review pending WBC 16.3 H RBC 4.20 L Hgb 12.9 L D Hct 39.0 MCV 92.8 MCH 30.8 MCHC 33.2 RDW 13.6 Plt Count 81 L MPV 8.4 Neut % (Auto) 84.3 H Lymph % (Auto) 11.0 [place] % (Auto) 3.8 Eos % (Auto) 0.7 Baso % (Auto) 0.2 Neut # (Auto) 13.8 H Lymph # (Auto) 1.8 [place] # (Auto) 0.6 Eos # (Auto) 0.1 Baso # (Auto) 0.0 WBC Differential Diff Scan Differential Comment . Platelet Estimate Platelet Morphology Sodium 143 Potassium 3.2 L Chloride 109 H Carbon Dioxide 26.1 Anion Gap 8 BUN 16 Creatinine 0.77 Estimated GFR Greater than 89 POC Glucose Random Glucose 101 Lactic Acid Calcium 7.2 L* D Total Bilirubin AST ALT Alkaline Phosphatase Total Protein Albumin Ur Collection Type Urine Color Urine Clarity Urine pH Ur Specific [place] Urine Protein Urine Glucose (UA) Urine Ketones Urine Occult Blood Urine Nitrate Urine Bilirubin Urine Urobilinogen Ur Leukocyte Esterase Urine RBC Ur Squamous Epith Cells Micro UA Comment Urine Culture Comments - Imaging Impressions Chest X-Ray 09/29/17 10:36 CONCLUSION: 1. Right perihilar airspace disease. Recommend follow-up after therapy to ensure resolution. 2. Minimal linear atelectasis/scarring above the left hemidiaphragm. Assessment and Plan - Assessment (1) Pneumonia Code(s): J18.9 - Pneumonia, unspecified organism Status: Acute (2) Hypertension Code(s): I10 - Essential (primary) hypertension Status: Acute - Plan This is an 87-year-old male with: Sepsis Community acquired pneumonia with hypoxia and need for supplemental O2 Recent antibiotic use, Clindamycin and Amoxicillin for dental abscess. - Met sepsis criteria with leukocytosis 16 with bandemia, fever 103, tachycardia , lactic acid 2.7, source pneumonia. - CXR reviewed showing right perihilar infiltrates. UA negative. - Given Azithromycin and Ceftriaxone in ED. Will continue. - Blood cultures pending. Follow. UA negative. - Supplemental O2 as needed, to keep sats >92%. Wean as tolerated. - Supportive care. Hypertension, chronic: Continue home BP medications. Monitor BP trends. DVT Prophylaxis: SCDs. Heparin. Discharge Planning: Awaiting blood cultures.
[2017-09-30 07:49] LABS: Platelet Morphology Normal (Normal)
[2017-09-30] MEDS: Sod Chloride 0.9% Inj 1,000 ML IV.SIG SCH ×2 (08:20→18:30)
[2017-09-30] MEDS: Atenolol 25 MG Tablet PO SCH (08:23)
[2017-09-30] MEDS: Senna/Docusate Sodium 8.6/50 MG Tablet PO SCH (08:23)
[2017-09-30] MEDS: amLODIPine 5 MG Tablet PO SCH (08:23)
[2017-09-30] MEDS: hydroCHLOROthiazide 25 MG Tablet PO SCH (08:23)
[2017-09-30] MEDS ORDERED: Azithromycin Inj 500 MG in Sodium Chlor 0.9% Inj 250 ML IV.SIG SCH (14:00)
[2017-09-30] MEDS: Sod Chloride 0.9% Inj 1,000 ML IV.CONT SCH (18:31)
[2017-10-01] MEDS: Senna/Docusate Sodium 8.6/50 MG Tablet PO SCH ×2 (02:47→08:58)
[2017-10-01] MEDS: Heparin - SQ 10,000 UNITS/ML Vial SQ SCH (02:52)
[2017-10-01] MEDS: Sod Chloride 0.9% Inj 1,000 ML IV.CONT SCH (02:54)
[2017-10-01 05:34] LABS: Chloride 111 meq/L (98-107); Potassium 3.7 meq/L (3.5-5.1); Sodium 144 meq/L (136-145)
[2017-10-01 05:37] LABS: Anion Gap 8 meq/L (5-15); Blood Urea Nitrogen 13 mg/dL (7-18); Carbon Dioxide 24.7 meq/L (21.0-32.0); Glucose,Random 96 mg/dL (74-106)
[2017-10-01 05:38] LABS: Baso % (Auto) 0.3 % (0.0-2.0); Eos # (Auto) 0.1 th/mm3 (0.0-0.4); Eos % (Auto) 1.4 % (0.0-4.0); Hematocrit 39.1 % (39.0-51.0); Hemoglobin 13.7 gm/dL (13.0-17.0); Lymph # (Auto) 1.3 th/mm3 (1.0-4.8); Lymph % (Auto) 13.3 % (9.0-44.0); Mean Corpuscular HGB Conc 35.1 % (32.0-36.0); Mean Corpuscular Hemoglobin 32.1 pg (27.0-34.0); Mean Corpuscular Volume 91.5 fL (80.0-100.0); Mean Platelet Volume 8.6 fL (7.0-11.0); Mono # (Auto) 0.5 th/mm3 (0.0-0.9); Mono % (Auto) 4.5 % (0.0-8.0); Neut # (Auto) 8.2 th/mm3 (1.8-7.7); Neut % (Auto) 80.5 % (16.0-70.0); Platelet Count 84 th/mm3 (150-450); Red Blood Count 4.27 mil/mm3 (4.50-5.90); Red Cell Distribution Width 14.5 % (11.6-17.2); White Blood Count 10.1 th/mm3 (4.0-11.0)
[2017-10-01 05:40] LABS: Glomerular Filtration Rate Greater Than 89 mL/min (>89)
[2017-10-01 06:53] LABS: Platelet Morphology Normal (Normal)
--- NOTE | 2017-10-01 08:43 | P.DS ---
Date of admission: 09/29/17 13:56 Primary care physician: Isidro Martel Brief History from admission: This is a pleasant 87-year-old male patient with a known medical history of hypertension and GERD who presented to the ED with complaints of fevers, chills , nausea and vomiting. Supposedly patient sustained a dental infection roughly 3 weeks ago and at that time was given clindamycin as well as amoxicillin and prednisone. Patient finished his course of antibiotics and steroids roughly 1 week ago. Since that time his dental infection seems to have improved although patient has been having fevers at home with T-max of 101 as well as chills. Patient supposedly ate breakfast yesterday and shortly after developed nausea and vomiting as well as shakiness and chills. Patient denies any cough or shortness of breath. He denies any recent diarrhea. Upon presentation patient meet sepsis criteria with temperature 103, leukocytosis, and pneumonia. DS: Diagnosis - Discharge Diagnosis (1) Pneumonia Status: Acute (2) Hypertension Status: Acute DS: Medications - Discharge Medications Prescriptions: amoxicillin-pot clavulanate [Augmentin] 1 tab PO Q12H 7 Days #14 tab Lactobacillus acidophilus 100 mmu cells PO TID 10 Days #30 cap DS: Summary Hospital Course: This is an 87-year-old male with presented with sepsis screening quadrant hypoxia and supplemental O2. Patient in recent antibiotic use with kanamycin amoxicillin for dental abscess. Patient had leukocytosis with bandemia fever tachycardia lactic acid 2.7. Chest x-ray showed perihilar infiltrates in the right side. UA negative. Was started on azithromycin and ceftriaxone. Continue during hospitalization. Blood cultures negative to date. Urinary analysis negative. Patient was placed on supplemental O2 and weaned off. Comfortable on room air with adequate saturations. Patient has chronic hypertension, was controlled during hospitalization. Continued on home blood pressure medicines. - Time Spent with Patient Total time spent providing and/or coordinating discharge services: Greater than 30 minutes - Quality: VTE Deep Vein Thrombosis/Pulmonary Embolism Present on Admission: No Exam Vital signs: Vital Signs 09/30/17 12:00 09/30/17 16:00 09/30/17 16:50 Temperature 98.6 F 98 F Pulse Rate 59 L 59 L Respiratory Rate 20 20 Blood Pressure 128/64 125/67 125/67 Pulse Oximetry 95 96 96 09/30/17 20:00 09/30/17 21:20 10/01/17 00:00 Temperature 99.2 F 98 F Pulse Rate 60 66 Respiratory Rate 20 20 Blood Pressure 128/71 128/65 Pulse Oximetry 96 95 95 Intake & Output 09/30/17 10/01/17 10/01/17 18:59 06:59 18:59 Intake Total 2430 / 2430 1120 / 1120 Balance 2430 / 2430 1120 / 1120 Weight 75.3 kg Intake: IV 1979 / 1979 1000 / 1000 NS Inj 1,000 ML @ 100 mls/hr IV 980 / 980 1000 / 1000 .CONT .Q10H [facility] Rx#:[id number] NS Inj 1,000 ML @ Wide Open IV. 1000 / 1000 SIG .Q0M [facility] Rx#:[id number] Oral 450 / 450 120 / 120 Other: # Voids 3 3 Date of Last Bowel Movement 09/29/17 # Bowel Movements 2 Narrative: GENERAL: Well-developed, well-nourished patient in [facility]. SKIN: Warm and dry. No rash. HEAD: Normocephalic. Atraumatic. EYES: Pupils equal and round. No scleral icterus. No injection or drainage. ENT: No nasal bleeding or discharge. Mucous membranes pink and moist. NECK: Supple. Trachea midline. CARDIOVASCULAR: Regular rate and rhythm. S1, S2 noted. No murmur appreciated. RESPIRATORY: No accessory muscle use. Clear to auscultation. Breath sounds equal bilaterally. GASTROINTESTINAL: Abdomen soft, non-tender, nondistended. Normoactive bowel sounds x4. MUSCULOSKELETAL: No obvious deformities. Extremities without clubbing, cyanosis , or edema. NEUROLOGICAL: Awake and alert. No obvious cranial nerve deficits. Motor grossly within normal limits. 5/5 muscle strength in bilateral upper and lower extremities. Normal speech. PSYCHIATRIC: Appropriate mood and affect; insight and judgment normal. - Constitutional no acute distress - Routine HEENT Exam Head: Present: normocephalic Eye: Present: EOMI, PERRL ENT: Present: mucous membranes moist Results Procedures completed during hospitalization: See below. Labs on day of discharge: Labs from last 24 hours 10/01/17 10/01/17 04:49 04:49 CBC w Diff Slide review pending WBC 10.1 RBC 4.27 L Hgb 13.7 Hct 39.1 MCV 91.5 MCH 32.1 MCHC 35.1 RDW 14.5 Plt Count 84 L MPV 8.6 Neut % (Auto) 80.5 H Lymph % (Auto) 13.3 [place] % (Auto) 4.5 Eos % (Auto) 1.4 Baso % (Auto) 0.3 Neut # (Auto) 8.2 H Lymph # (Auto) 1.3 [place] # (Auto) 0.5 Eos # (Auto) 0.1 Baso # (Auto) 0.0 WBC Differential . Diff Scan Auto diff confirmed Differential Comment . Platelet Estimate Low L Platelet Morphology Normal Sodium 144 Potassium 3.7 Chloride 111 H Carbon Dioxide 24.7 Anion Gap 8 BUN 13 Creatinine 0.77 Estimated GFR Greater than 89 Random Glucose 96 Calcium 8.0 L D Preliminary micro results at discharge 09/29/17 10:10 Aerobic Blood Culture - Preliminary Blood - Peripheral No growth in 1 day Anaerobic Blood Culture - Preliminary No growth in 1 day 09/29/17 10:20 Aerobic Blood Culture - Preliminary Blood - Peripheral No growth in 1 day Anaerobic Blood Culture - Preliminary No growth in 1 day - Impressions ITS Impressions Chest X-Ray 09/29/17 10:36 CONCLUSION: 1. Right perihilar airspace disease. Recommend follow-up after therapy to ensure resolution. 2. Minimal linear atelectasis/scarring above the left hemidiaphragm. Discharge Plan - Discharge Disposition Patient Disposition: W/Home Health Service - Discharge Condition Condition: Good - Physicians Team Primary Care Provider: Isidro Martel Attending Provider: Dayna Hagen
[2017-10-01] MEDS: Atenolol 25 MG Tablet PO SCH (08:57)
[2017-10-01] MEDS: amLODIPine 5 MG Tablet PO SCH (08:58)
[2017-10-01] MEDS: hydroCHLOROthiazide 25 MG Tablet PO SCH (08:59)
[2017-10-01 10:20] VITALS: BP 142/74; PULSE 64; TEMP 97.5; O2SAT 96
== END 2017-10-01 11:03 | disposition home or self-care (01) ==
LOC: PHED 09:58 → PH3 09:58 → INTOOBSV 13:41 → PHEDA 13:56 → PH3 15:28
PROVIDERS: ADMIT Hospitalist; ATTEND Hospitalist